=== PATIENT | male | born 1960 | race Two or more races ===

== ENCOUNTER 2018-05-10 09:28 | Inpatient (IN) | payer OTHER ==
[2018-05-10 09:36] VITALS: BMI 23.3
--- NOTE | 2018-05-10 10:52 | HP ---
COWS - Scale Resting Pulse: 1= [place] 81-100 Sweatin= No chills or Flushing Restless Observation: 1= Difficult to Sit Still Pupil Size: 1= Pupils >than Normal Bone or Joint Aches: 1= Mild Discomfort Runny Nose/ Eye Tearin= Runny Nose/Eyes GI Upset > 30mins: 1= Stomach Cramp Tremor Observation: 1= Tremor [place], Not Seen Yawning Observation: 2= >3x During Session Anxiety or Irritability: 2=Irritable/Anxious Goose Flesh Skin: 3=Piloerection COWS Score: 15 Admission ROS S - HPI Chief Complaint: opioid withdrawal symptoms Allergies/Adverse Reactions: Allergies Allergy/AdvReac Type Severity Reaction Status Date / Time prochlorperazine edisylate Allergy Severe Swelling Verified 05/10/18 09:40 [From Compazine] prochlorperazine maleate Allergy Severe Swelling Verified 05/10/18 09:40 [From Fyreballazine] History of Present Illness: 57 yo male with hx of heroin, cocaine, and marijuana dependence is here seeking detox. Last detox [facility] 2014. Longest period of sobriety one year. PMHX: Hep C, HIV+, asthma, anxiety and depression. Denies suicidal / homicidal ideaitn or suicide attempts. Denies hx of seixures, blackouts or overdose. Exam Limitations: No Limitations - Ebola screening Have you traveled outside of the country in the last 21 days: No Have you had contact with anyone from an Ebola affected area: No Have you been sick,other than usual withdrawal symptoms: No Do you have a fever: No - Review of Systems Constitutional: Chills, Loss of Appetite, Changes in sleep, Unintentional Wgt. Loss (20 lbs in the past year) EENT: reports: Blurred Vision (uses reading) Respiratory: reports: No Symptoms reported Cardiac: reports: Other (reports episodic periods of chest pain, denies chest pain at this time) GI: reports: Poor Appetite, Poor Fluid Intake, Abdominal cramping : reports: Frequency, Other Musculoskeletal: reports: Back Pain, Joint Pain Integumentary: reports: No Symptoms Reported Neuro: reports: Headache, Numbness (chronic numbness on rigth foot) Endocrine: reports: Increased Thirst Hematology: reports: See HPI Psychiatric: reports: Orientated x3, Depressed Other Systems: Reviewed and Negative Patient History - Patient Medical History Hx Anemia: Yes (NOT CURRENTLY ON SUPPLEMENTS) Hx Asthma: Yes (ON MDI) Hx Chronic Obstructive Pulmonary Disease (COPD): No Hx Cancer: No Hx Cardiac Disorders: No Hx Congestive Heart Failure: No Hx Hypertension: No Hx Hypercholesterolemia: No HX Cerebrovascular Accident: No Hx Seizures: No Hx Dementia: No Hx Diabetes: No Hx Gastrointestinal Disorders: Yes (NOT ON MED) Hx Liver Disease: Yes (HEP C) Hx Genitourinary Disorders: No (DENIES) Hx Sexually Transmitted Disorders: Yes (HIV) Hx Renal Disease (ESRD): No Hx Thyroid Disease: No Hx Human Immunodeficiency Virus (HIV): Yes (SINCE 1986;HX ORAL THRUSH; NO CURRENT ANTIRETROVIRAL MEDS.) Hx Hepatitis C: Yes (NO [place]) Hx Depression: Yes (NO CURRENT MEDS) Hx Suicide Attempt: No (DENIES) Hx Bipolar Disorder: No Hx Schizophrenia: No - Patient Surgical History Past Surgical History: Yes Hx Neurologic Surgery: No Hx Cataract Extraction: No Hx Cardiac Surgery: No Hx Lung Surgery: No Hx Breast Surgery: No Hx Breast Biopsy: No Hx Abdominal Surgery: No Hx Appendectomy: No Hx Cholecystectomy: Yes (in 2003) Hx Genitourinary Surgery: No Hx Section: No Hx Orthopedic Surgery: No Other Surgical History: Cyst removed from upper chest @ at 15 yrs old. Anesthesia Reaction: No - PPD History Previous Implant?: Yes Documented Results: Negative w/proof Implanted On Prior [facility] Admission?: Yes Date: 03/17/12 Results: NEGATIVE PPD to be Administered?: Yes - Smoking Cessation Smoking history: Former smoker Have you smoked in the past 12 months: No Aproximately how many cigarettes per day: 80 If you are a former smoker, when did you quit?: IN 1995 Hx Chewing Tobacco Use: No Initiated information on smoking cessation: No - Substance & Tx. History Hx Alcohol Use: No Hx Substance Use: Yes Substance Use Type: Heroin, Marijuana, Opiates Hx Substance Use Treatment: Yes ([facility] 2014) - Substances Abused Heroin Route: Inhalation Frequency: Daily Amount used: 14-16 BAGS DAILY Age of first use: 18 Date of Last Use: 05/10/18 Marijuana/Hashish Route: Smoking Frequency: 3-6 times per week Amount used: 1/2 JOINT Age of first use: 15 Date of Last Use: 05/10/18 Cocaine Route: Injection Frequency: Daily Amount used: 1 BAG WHEN USED Age of first use: 20 Date of Last Use: 05/08/18 Family Disease History - Family Disease History Family Disease History: Heart Disease: Mother, Other: Father (ADDICTION) Admission Physical Exam [facility] - Vital Signs Vital Signs: Vital Signs - 24 hr 05/10/18 09:30 Temperature 97.4 F L Pulse Rate 102 H Respiratory 18 Rate Blood Pressure 152/96 - Physical General Appearance: Yes: Appropriately Dressed, Thin, Sweating, Anxious HEENTM: Yes: EOMI, Hearing grossly Normal, Normal ENT Inspection, Normocephalic , Normal Voice, BARRY, Pharynx Normal, Tm's normal, Other (poor dentition) Respiratory: Yes: Chest Non-Tender, Lungs Clear, Normal Breath Sounds, No Respiratory Distress, No Accessory Muscle Use Neck: Yes: No masses,lesions,Nodules, Trachea in good position Breast: Yes: Breast Exam Deferred Cardiology: Yes: Regular Rhythm, Regular Rate Abdominal: Yes: Normal Bowel Sounds, Non Tender, Flat, Soft Genitourinary: Yes: Within Normal Limits Back: Yes: Normal Inspection Musculoskeletal: Yes: full range of Motion, Gait Steady, Pelvis Stable, Back pain Extremities: Yes: Normal Capillary Refill, Normal Inspection, Normal Range of Motion, Non-Tender Neurological: Yes: Within Normal Limits, policy change clerk II-XII NML intact, Fully Oriented, Alert, Depressed Affect Integumentary: Yes: Normal Color, Warm, Diaphoresis Lymphatic: Yes: Within Normal Limits - Diagnostic (1) Cocaine dependence Current Visit: Yes Status: Acute Qualifiers: Substance use status: uncomplicated Qualified Code(s): F14.20 - Cocaine dependence, uncomplicated (2) Marijuana dependence Current Visit: Yes Status: Acute (3) Opioid dependence with withdrawal Current Visit: Yes Status: Acute (4) Asthma Current Visit: Yes Status: Chronic Qualifiers: Asthma severity: mild Asthma persistence: intermittent Asthma complication type: unspecified Qualified Code(s): J45.20 - Mild intermittent asthma, uncomplicated (5) Depression Current Visit: Yes Status: Suspected Qualifiers: Depression Type: unspecified Qualified Code(s): F32.9 - Major depressive disorder, single episode, unspecified (6) HIV (human immunodeficiency virus infection) Current Visit: Yes Status: Chronic (7) Hepatitis C Current Visit: Yes Status: Chronic Qualifiers: Viral hepatitis chronicity: chronic Hepatic coma status: without hepatic coma Qualified Code(s): B18.2 - Chronic viral hepatitis C Cleared for Admission [facility] - Detox or Rehab [facility] Level of Care: Medically Managed Detox Regimen/Protocol: Methadone [facility] Breath Alcohol Content Breath Alcohol Content: 0 Urine Drug Screen - Results Drug Screen Negative: No Urine Drug Screen Results: THC-Marijuana, LAMONT-Cocaine, OPI-Opiates, MTD- Methadone, OXY-Oxycodone
[2018-05-10] MEDS ORDERED: ALBUTEROL SO4 8 GM HFA INHALER IH PRN (10:57)
[2018-05-10] MEDS ORDERED: HYDROCORTISONE 2.5% TOPICAL CREAM 30 GM TUBE TP PRN (10:57)
[2018-05-10] MEDS ORDERED: ACETAMINOPHEN 325 MG TABLET (FP) PO PRN (10:58)
[2018-05-10] MEDS ORDERED: LOPERAMIDE HCL 2 MG CAPSULE PO PRN (10:58)
[2018-05-10] MEDS ORDERED: P-EPHED 60MG/TRIPROLIDI 2.5MG TABLET PO PRN (10:58)
[2018-05-10] MEDS ORDERED: MAGNESIUM HYDROX 2400MG/30ML ORAL SUSPENSION 30 ML CUP PO PRN (10:58)
[2018-05-10] MEDS ORDERED: MENTHOL/PHENOL 1 EACH UD MM PRN (10:58)
[2018-05-10] MEDS ORDERED: guaiFENesin/D-METHORPHAN HB 10 ML UNIT-DOSE CUPS PO PRN (10:58)
[2018-05-10] MEDS ORDERED: IBUPROFEN 400 MG TABLET (FP) PO PRN (10:58)
[2018-05-10] MEDS ORDERED: MAG HYDROX/AL HYDROX/SIMETH 30 ML UNIT-DOSE CUP PO PRN (10:58)
[2018-05-10] MEDS ORDERED: MAGNESIUM CITRATE 300 ML BOTTLE PO PRN (10:58)
[2018-05-10] MEDS ORDERED: METHADONE HCL 10 MG TABLET (FOR DETOX USE ONLY) PO ONE ×2 (12:15→23:00)
[2018-05-10] MEDS: diazePAM 5 MG TABLET PO PRN ×2 (13:28→22:04)
[2018-05-10 17:18] LABS: URINE APPEARANCE TURBID; URINE BILIRUBIN NEGATIVE (<2.0 mg/dL); URINE COLOR AMBER; URINE GLUCOSE (UA) NEGATIVE (NEGATIVE); URINE KETONE NEGATIVE (NEGATIVE); URINE LEUK ESTERASE NEGATIVE (NEGATIVE); URINE NITRITE NEGATIVE (NEGATIVE); URINE PROTEIN NEGATIVE (NEGATIVE); URINE UROBILINOGEN NEGATIVE mg/dL (0.2-1.0)
[2018-05-10] MEDS ORDERED: DARUNAVIR 800 MG/COBICISTAT 150MG TABLET PO SCH (22:00)
[2018-05-10] MEDS: MELATONIN 5 MG TABLETS PO PRN (22:04)
[2018-05-10] MEDS: PATIENT'S OWN MEDICATION (NON-FORMULARY) (Dolutegravir Sodium [Tivicay] 50 MG) PO SCH (22:04)
[2018-05-10] MEDS: TENOFOVIR DISOPROXIL FUMARATE 300 MG TABLET PO SCH (22:04)
[2018-05-10] MEDS: THIAMINE HCL 100 MG TABLET (FP) PO SCH (22:04)
[2018-05-10] MEDS: DARUNAVIR 800 MG/COBICISTAT 150MG TABLET PO SCH (22:04)
[2018-05-11] MEDS: diazePAM 5 MG TABLET PO PRN ×3 (06:19→22:05)
[2018-05-11] MEDS ORDERED: DOLUTEGRAVIR SODIUM 50 MG TABLET PO SCH (10:00)
[2018-05-11] MEDS ORDERED: METHADONE HCL 10 MG TABLET (FOR DETOX USE ONLY) PO ONE (10:00)
[2018-05-11] MEDS ORDERED: DARUNAVIR 800 MG/COBICISTAT 150MG TABLET PO SCH (10:00)
[2018-05-11] MEDS ORDERED: TENOFOVIR DISOPROXIL FUMARATE 300 MG TABLET PO SCH (10:00)
[2018-05-11] MEDS: PRENATAL VITAMINS W/ FOLIC ACID TABLET (FP) PO SCH (10:12)
[2018-05-11 10:49] LABS: HEMATOCRIT 41.3 % (35.4-49); HEMOGLOBIN 13.6 GM/dL (11.7-16.9); MCH 27.7 pg (25.7-33.7); MEAN CELL VOLUME 84.1 fl (80-96); MEAN PLT VOLUME 12.2 fl (7.5-11.1); PLATELET COUNT 120 K/MM3 (134-434); RBC 4.91 M/mm3 (4.00-5.60); RDW 14.1 % (11.9-15.9); WHITE BLOOD COUNT 4.8 K/mm3 (4.0-10.0)
[2018-05-11 11:00] LABS: ALBUMIN 3.8 g/dl (3.4-5.0); ANION GAP 9 (8-16); BLOOD UREA NITROGEN 14 mg/dL (7-18); CHLORIDE 104 mmol/L (98-107); CO2 30 mmol/L (21-32); POTASSIUM 4.5 mmol/L (3.5-5.1); SODIUM 143 mmol/L (136-145)
[2018-05-11 11:03] LABS: ALK PHOS 129 U/L (45-117); BILIRUBIN,TOTAL 0.5 mg/dL (0.2-1.0); CALCIUM 9.7 mg/dL (8.5-10.1); GLUCOSE,RANDOM 98 mg/dL (74-106); SGOT/AST 365 U/L (15-37); SGPT/ALT 226 U/L (12-78); TOT PROT 9.6 g/dl (6.4-8.2)
--- NOTE | 2018-05-11 11:26 | PN ---
[facility] COWS - Scale Resting Pulse: 1= [place] 81-100 Sweatin= Chills/Flushing Restless Observation: 3= Extraneous Movement Pupil Size: 0= Normal to Room Light Bone or Joint Aches: 1= Mild Discomfort Runny Nose/ Eye Tearin= None GI Upset > 30mins: 0= None Tremor Observation of Outstretched Hands: 2= Slight Tremor Visible Yawning Observation: 1= 1-2x During Session Anxiety or Irritability: 2=Irritable/Anxious Goose Flesh Skin: 0=Smooth Skin COWS Score: 11 [facility] Progress Note (SOAP) Subjective: ANXIETY,FATIGUE, OTHERWISE REPORTS DETOX PROTOCOL PROCEEDING WELL. Objective: 05/11/18 11:23 Vital Signs 05/11/18 05/11/18 05/11/18 03:30 06:08 10:42 Temperature 98.1 F 97.5 F L Pulse Rate 70 85 Respiratory 18 18 18 Rate Blood Pressure 113/72 111/78 Laboratory Tests 05/10/18 05/11/18 05/11/18 16:30 06:00 06:00 WBC 4.8 RBC 4.91 Hgb 13.6 Hct 41.3 MCV 84.1 MCH 27.7 MCHC 33.0 RDW 14.1 Plt Count 120 L MPV 12.2 H Sodium 143 Potassium 4.5 Chloride 104 Carbon Dioxide 30 Anion Gap 9 BUN 14 Creatinine 1.0 Creat Clearance w eGFR > 60 Random Glucose 98 Calcium 9.7 Total Bilirubin 0.5 AST 365 H D ALT 226 H D Alkaline Phosphatase 129 H Total Protein 9.6 H Albumin 3.8 Urine Color Kerline Urine Appearance Turbid Urine pH 5.0 Ur Specific [place] 1.025 Urine Protein Negative Urine Glucose (UA) Negative Urine Ketones Negative Urine Blood Negative Urine Nitrite Negative Urine Bilirubin Negative Urine Urobilinogen Negative Ur Leukocyte Esterase Negative ELEVATED LIVER ENZYMES Assessment: 05/11/18 11:24 WITHDRAWAL SX Plan: CONTINUE DETOX INCREASE PO FLUIDS REPEAT LIVER ENZYMES; INR
--- NOTE | 2018-05-11 15:57 | PN ---
[facility] Progress Note Note: Spoke to patient re:elevated liver enzymes. In collaboration with the pharmacist Mr. Berg, Tivicay 50 mg, Prescobix 800-150 mg and Tenofovir 300 mg will be held tonight. Liver enzymes to be repeated in the morning. Plan:Re-evaluate pt after repeat labs. Pt will take copy of lab results to follow up with his primary care provider Dr. Linh young at the [place], [place] after detox for proper management. Pt verbalizes understanding of plan.
--- NOTE | 2018-05-11 17:06 | EKG ---
Test Reason : Blood Pressure : / mmHG Vent. Rate : 083 BPM Atrial Rate : 083 BPM P-R Int : 130 ms QRS Dur : 072 ms QT Int : 356 ms P-R-T Axes : 070 -03 035 degrees QTc Int : 418 ms NORMAL SINUS RHYTHM NORMAL ECG NO PREVIOUS ECGS AVAILABLE Confirmed by MD PALOMA, GIO ([id number]) on 05/11/2018 5:06:07 PM Referred By: Confirmed By:GIO DOW MD
--- NOTE | 2018-05-11 18:10 | CONSULT ---
[facility] Psychiatric Consult - Data Date of interview: 05/11/18 Admission source: [facility] Identifying data: Readmission to [facility] for this 57 y/o male seeking detox treatmenton [address] [place] [address] for heroin,cocaine and cannabis dependence.Patient is in a 16 year common-law relationship without dependents, domiciled,unemployed and supported on SSI/SSD benefits. Substance Abuse History: Discussed in this session.Substance abuse (cocaine, heroin,cannabis) confirmed by the patient.Smoking history: Former smoker. Have you smoked in the past 12 months: No. Aproximately how many cigarettes per day : 80. If you are a former smoker, when did you quit?: IN 1995. Hx Chewing Tobacco Use: No. Initiated information on smoking cessation: No. - Substance & Tx. History. Hx Alcohol Use: No. Hx Substance Use: Yes. Substance Use Type : Heroin, Marijuana, Opiates. Hx Substance Use Treatment: Yes ([facility] 2014). - Substances Abused. Heroin. Route: Inhalation. Frequency: Daily. Amount used: 14-16 BAGS DAILY. Age of first use: 18. Date of Last Use: 05/10/18. Marijuana/Hashish. Route: Smoking. Frequency: 3-6 times per week. Amount used : 1/2 JOINT. Age of first use: 15. Date of Last Use: 05/10/18. Cocaine. Route: Injection. Frequency: Daily. Amount used: 1 BAG WHEN USED. Age of first use: 20. Date of Last Use: 05/08/18 Medical History: Anemia,bronchial asthma,HIV infection since 1986 (on HAART medications),hepatitis C and a history of cholecystectomy (2003). Psychiatric History: Patient denies. Physical/Sexual Abuse/Trauma History: Distant history of a traumatic experience : witnessing the [place] two [place] in [facility].Now coping well with his memories. Additional Comment: Urine Drug Screen Results: THC-Marijuana, LAMONT-Cocaine, OPI- Opiates, MTD-Methadone, OXY-Oxycodone.Noted. Mental Status Exam - Mental Status Exam Alert and Oriented to: Time, Place, Person Cognitive Function: Good Patient Appearance: Well Groomed (neatly attired) Mood: Hopeful, Euthymic Affect: Appropriate, Normal Range Patient Behavior: Fatigued, Appropriate, Cooperative Speech Pattern: Clear (bilingual), Appropriate Voice Loudness: Normal Thought Process: Intact, Goal Oriented Thought Disorder: Not Present Hallucinations: Denies Suicidal Ideation: Denies Homicidal Ideation: Denies Insight/Judgement: Poor Sleep: Well Appetite: Good Muscle strength/Tone: Normal Gait/Station: Normal Psychiatric Findings - Problem List ([place] 1, 2,3) (1) Opioid dependence with withdrawal Current Visit: Yes Status: Acute (2) Cocaine dependence Current Visit: Yes Status: Acute Qualifiers: Substance use status: uncomplicated Qualified Code(s): F14.20 - Cocaine dependence, uncomplicated (3) Marijuana dependence Current Visit: Yes Status: Acute - Initial Treatment Plan Initial Treatment Plan: Psychoeducation.Sleep hygiene discussed.Detoxification in progress.Observation.
[2018-05-11] MEDS: THIAMINE HCL 100 MG TABLET (FP) PO SCH (22:04)
[2018-05-12] MEDS ORDERED: METHADONE HCL 5 MG TABLET (FOR DETOX USE ONLY) PO ONE (10:00)
[2018-05-12] MEDS: PRENATAL VITAMINS W/ FOLIC ACID TABLET (FP) PO SCH (10:03)
--- NOTE | 2018-05-12 14:06 | PN ---
[facility] COWS - Scale Resting Pulse: 0= [place] 80 or Below Sweatin= Chills/Flushing Restless Observation: 1= Difficult to Sit Still Pupil Size: 0= Normal to Room Light Bone or Joint Aches: 2= Severe Diffuse Aches Runny Nose/ Eye Tearin= Nasal Congestion GI Upset > 30mins: 0= None Tremor Observation of Outstretched Hands: 0= None Yawning Observation: 1= 1-2x During Session Anxiety or Irritability: 2=Irritable/Anxious Goose Flesh Skin: 3=Piloerection COWS Score: 11 [facility] Progress Note (SOAP) Subjective: H/A, Body Aches, Fatigue. Objective: PATIENT A & O X 2 (UNCERTAIN ABOUT CURRENT DAY / DATE). PATIENT OBSERVED AMBULATING ON UNIT. NO ACUTE DISTRESS. 05/12/18 14:03 Vital Signs Temperature 98.4 F 05/12/18 13:34 Pulse Rate 74 05/12/18 13:34 Respiratory Rate 20 05/12/18 13:34 Blood Pressure 113/78 05/12/18 13:34 O2 Sat by Pulse Oximetry (%) Laboratory Tests 05/10/18 05/11/18 05/11/18 16:30 06:00 06:00 WBC 4.8 RBC 4.91 Hgb 13.6 Hct 41.3 MCV 84.1 MCH 27.7 MCHC 33.0 RDW 14.1 Plt Count 120 L MPV 12.2 H Sodium 143 Potassium 4.5 Chloride 104 Carbon Dioxide 30 Anion Gap 9 BUN 14 Creatinine 1.0 Creat Clearance w eGFR > 60 Random Glucose 98 Calcium 9.7 Total Bilirubin 0.5 AST 365 H D ALT 226 H D Alkaline Phosphatase 129 H Total Protein 9.6 H Albumin 3.8 Urine Color Kerline Urine Appearance Turbid Urine pH 5.0 Ur Specific [place] 1.025 Urine Protein Negative Urine Glucose (UA) Negative Urine Ketones Negative Urine Blood Negative Urine Nitrite Negative Urine Bilirubin Negative Urine Urobilinogen Negative Ur Leukocyte Esterase Negative RPR Titer 05/11/18 06:00 WBC RBC Hgb Hct MCV MCH MCHC RDW Plt Count MPV Sodium Potassium Chloride Carbon Dioxide Anion Gap BUN Creatinine Creat Clearance w eGFR Random Glucose Calcium Total Bilirubin AST ALT Alkaline Phosphatase Total Protein Albumin Urine Color Urine Appearance Urine pH Ur Specific [place] Urine Protein Urine Glucose (UA) Urine Ketones Urine Blood Urine Nitrite Urine Bilirubin Urine Urobilinogen Ur Leukocyte Esterase RPR Titer Nonreactive LABS NOTED. Assessment: 05/12/18 14:04 WITHDRAWAL SYMPTOMS. Plan: CONTINUE DETOX. HEPATIC FUNCTION PANEL TOMORROW AM FOR ELEVATED ADMISSION HEPATIC LIVER ENZYME VALUES.
[2018-05-12] MEDS: diazePAM 5 MG TABLET PO PRN (22:08)
[2018-05-12] MEDS: THIAMINE HCL 100 MG TABLET (FP) PO SCH (22:08)
[2018-05-12] MEDS: PATIENT'S OWN MEDICATION (NON-FORMULARY) (Dolutegravir Sodium [Tivicay] 50 MG) PO SCH (22:10)
[2018-05-12] MEDS: DARUNAVIR 800 MG/COBICISTAT 150MG TABLET PO SCH (22:11)
[2018-05-12] MEDS: TENOFOVIR DISOPROXIL FUMARATE 300 MG TABLET PO SCH (22:11)
[2018-05-13] MEDS: diazePAM 5 MG TABLET PO PRN (09:33)
[2018-05-13 09:53] LABS: ALBUMIN 2.7 g/dl (3.4-5.0)
[2018-05-13 09:57] LABS: BILIRUBIN,TOTAL 0.5 mg/dL (0.2-1.0); TOT PROT 7.7 g/dl (6.4-8.2)
[2018-05-13] MEDS ORDERED: METHADONE HCL 5 MG TABLET (FOR DETOX USE ONLY) PO ONE (10:00)
[2018-05-13] MEDS: PRENATAL VITAMINS W/ FOLIC ACID TABLET (FP) PO SCH (10:04)
--- NOTE | 2018-05-13 12:19 | PN ---
[facility] Progress Note (SOAP) Subjective: Body Aches, Sweating, Fatigue, Diarrhea. Objective: PATIENT A & O X 2 (UNCERTAIN ABOUT CURRENT DAY / DATE). PATIENT OBSERVED AMBULATING ON UNIT. NO ACUTE DISTRESS. 05/13/18 12:16 Vital Signs Temperature 97.1 F L 05/13/18 09:36 Pulse Rate 85 05/13/18 09:36 Respiratory Rate 20 05/13/18 09:36 Blood Pressure 112/82 05/13/18 09:36 O2 Sat by Pulse Oximetry (%) Laboratory Tests 05/10/18 05/11/18 05/11/18 16:30 06:00 06:00 WBC 4.8 RBC 4.91 Hgb 13.6 Hct 41.3 MCV 84.1 MCH 27.7 MCHC 33.0 RDW 14.1 Plt Count 120 L MPV 12.2 H Sodium 143 Potassium 4.5 Chloride 104 Carbon Dioxide 30 Anion Gap 9 BUN 14 Creatinine 1.0 Creat Clearance w eGFR > 60 Random Glucose 98 Calcium 9.7 Total Bilirubin 0.5 AST 365 H D ALT 226 H D Alkaline Phosphatase 129 H Total Protein 9.6 H Albumin 3.8 Urine Color Kerline Urine Appearance Turbid Urine pH 5.0 Ur Specific [place] 1.025 Urine Protein Negative Urine Glucose (UA) Negative Urine Ketones Negative Urine Blood Negative Urine Nitrite Negative Urine Bilirubin Negative Urine Urobilinogen Negative Ur Leukocyte Esterase Negative RPR Titer 05/11/18 05/13/18 06:00 07:30 WBC RBC Hgb Hct MCV MCH MCHC RDW Plt Count MPV Sodium Potassium Chloride Carbon Dioxide Anion Gap BUN Creatinine Creat Clearance w eGFR Random Glucose Calcium Total Bilirubin 0.5 AST ALT 199 H Alkaline Phosphatase 118 H D Total Protein 7.7 Albumin 2.7 L Urine Color Urine Appearance Urine pH Ur Specific [place] Urine Protein Urine Glucose (UA) Urine Ketones Urine Blood Urine Nitrite Urine Bilirubin Urine Urobilinogen Ur Leukocyte Esterase RPR Titer Nonreactive LABS NOTED. Assessment: 05/13/18 12:17 WITHDRAWAL SYMPTOMS. Plan: CONTINUE DETOX. INCREASE DAILY PO FLUID INTAKE. PRN IMMODIUM FOR DIARRHEA.
[2018-05-13 15:22] LABS: BILIRUBIN,DIRECT 0.2 mg/dL (0.0-0.2)
--- NOTE | 2018-05-13 17:33 | PN ---
[facility] Progress Note Note: Patient on antivirals and has elevated liver enzymes. Alert. Disoriented to day/ month. Is aware of location and year. Tremors of hands upon extension. Abd soft , non-tender, BS(+). Lungs CTA. CMP Sodium 143 mmol/L (136-145) 05/11/18 06:00 Potassium 4.5 mmol/L (3.5-5.1) 05/11/18 06:00 Chloride 104 mmol/L (98-107) 05/11/18 06:00 Carbon Dioxide 30 mmol/L (21-32) 05/11/18 06:00 Anion Gap 9 (8-16) 05/11/18 06:00 BUN 14 mg/dL (7-18) 05/11/18 06:00 Creatinine 1.0 mg/dL (0.7-1.3) 05/11/18 06:00 Creat Clearance w eGFR > 60 (>60) 05/11/18 06:00 Random Glucose 98 mg/dL (74-106) 05/11/18 06:00 Calcium 9.7 mg/dL (8.5-10.1) 05/11/18 06:00 Total Bilirubin 0.5 mg/dL (0.2-1.0) 05/13/18 07:30 Direct Bilirubin 0.2 mg/dL (0.0-0.2) 05/13/18 07:30 AST 345 U/L (15-37) H 05/13/18 07:30 ALT 199 U/L (12-78) H 05/13/18 07:30 Alkaline Phosphatase 118 U/L (45-117) H D 05/13/18 07:30 Total Protein 7.7 g/dl (6.4-8.2) 05/13/18 07:30 Albumin 2.7 g/dl (3.4-5.0) L 05/13/18 07:30 Vital Signs Period Temp Pulse Resp BP Sys/[place] Pulse Ox Last 24 Hr 96.8 F-98.6 F 68-85 18-20 112-136/70-87 Will hold antivirals and discussed with patient the reasons for stopping medications. Patient verbalizes an understanding of the need to meet w/ PCP and discuss experience while at [facility] and need for medication evaluation. Will repeat liver enzymes and order serum ammonia levels for am.
[2018-05-13] MEDS: THIAMINE HCL 100 MG TABLET (FP) PO SCH (22:06)
[2018-05-13] MEDS: MELATONIN 5 MG TABLETS PO PRN (22:06)
[2018-05-14] MEDS ORDERED: METHADONE HCL 10 MG TABLET (FOR DETOX USE ONLY) PO ONE (10:00)
[2018-05-14] MEDS: PRENATAL VITAMINS W/ FOLIC ACID TABLET (FP) PO SCH (10:06)
[2018-05-14 10:46] LABS: ANION GAP 8 (8-16); BLOOD UREA NITROGEN 11 mg/dL (7-18); CALCIUM 8.9 mg/dL (8.5-10.1); CHLORIDE 109 mmol/L (98-107); CO2 25 mmol/L (21-32); CREATININE 0.8 mg/dL (0.7-1.3); GLUCOSE,RANDOM 102 mg/dL (74-106); POTASSIUM 4.1 mmol/L (3.5-5.1); SGPT/ALT 231 U/L (12-78); SODIUM 142 mmol/L (136-145)
[2018-05-14 10:47] LABS: SGOT/AST 408 U/L (15-37)
[2018-05-14 10:48] LABS: ALK PHOS 125 U/L (45-117); BILIRUBIN,TOTAL 0.5 mg/dL (0.2-1.0); TOT PROT 8.4 g/dl (6.4-8.2)
--- NOTE | 2018-05-14 12:11 | PN ---
S Progress Note (SOAP) Subjective: Patient reports mild chills and sweating. Patient denies any other withdrawal symptoms at this time. Objective: PATIENT A & O X 3, OBSERVED AMBULATING ON UNIT. NO ACUTE DISTRESS. 05/14/18 12:10 Vital Signs Temperature 97.7 F 05/14/18 09:45 Pulse Rate 72 05/14/18 09:45 Respiratory Rate 16 05/14/18 09:45 Blood Pressure 101/67 05/14/18 09:45 O2 Sat by Pulse Oximetry (%) Laboratory Tests 05/10/18 05/11/18 05/11/18 16:30 06:00 06:00 WBC 4.8 RBC 4.91 Hgb 13.6 Hct 41.3 MCV 84.1 MCH 27.7 MCHC 33.0 RDW 14.1 Plt Count 120 L MPV 12.2 H Sodium 143 Potassium 4.5 Chloride 104 Carbon Dioxide 30 Anion Gap 9 BUN 14 Creatinine 1.0 Creat Clearance w eGFR > 60 Random Glucose 98 Calcium 9.7 Total Bilirubin 0.5 Direct Bilirubin AST 365 H D ALT 226 H D Alkaline Phosphatase 129 H Ammonia Total Protein 9.6 H Albumin 3.8 Urine Color Kerline Urine Appearance Turbid Urine pH 5.0 Ur Specific [place] 1.025 Urine Protein Negative Urine Glucose (UA) Negative Urine Ketones Negative Urine Blood Negative Urine Nitrite Negative Urine Bilirubin Negative Urine Urobilinogen Negative Ur Leukocyte Esterase Negative RPR Titer 05/11/18 05/13/18 05/14/18 06:00 07:30 07:40 WBC RBC Hgb Hct MCV MCH MCHC RDW Plt Count MPV Sodium 142 Potassium 4.1 Chloride 109 H Carbon Dioxide 25 Anion Gap 8 BUN 11 Creatinine 0.8 Creat Clearance w eGFR > 60 Random Glucose 102 Calcium 8.9 Total Bilirubin 0.5 0.5 Direct Bilirubin 0.2 AST 345 H 408 H ALT 199 H 231 H Alkaline Phosphatase 118 H D 125 H Ammonia Total Protein 7.7 8.4 H Albumin 2.7 L 3.0 L Urine Color Urine Appearance Urine pH Ur Specific [place] Urine Protein Urine Glucose (UA) Urine Ketones Urine Blood Urine Nitrite Urine Bilirubin Urine Urobilinogen Ur Leukocyte Esterase RPR Titer Nonreactive 05/14/18 07:40 WBC RBC Hgb Hct MCV MCH MCHC RDW Plt Count MPV Sodium Potassium Chloride Carbon Dioxide Anion Gap BUN Creatinine Creat Clearance w eGFR Random Glucose Calcium Total Bilirubin Direct Bilirubin AST ALT Alkaline Phosphatase Ammonia 86.0 H Total Protein Albumin Urine Color Urine Appearance Urine pH Ur Specific [place] Urine Protein Urine Glucose (UA) Urine Ketones Urine Blood Urine Nitrite Urine Bilirubin Urine Urobilinogen Ur Leukocyte Esterase RPR Titer LABS NOTED. Assessment: 05/14/18 12:10 COMPLETION OF DETOX REGIMEN. Plan: PATIENT SCHEDULED FOR DISCHARGE FROM DETOX UNIT TODAY. PATIENT SCHEDULED TO GO [facility] ([facility] FOR AFTERCARE.
--- NOTE | 2018-05-14 12:14 | DS ---
[facility] Detox Discharge Summary Admission Date: 05/10/18 Discharge Date: 05/14/18 - History Present History: Cannabis Dependence, Cocaine Dependence, Opioid Dependence Additional Comments: PATIENT GOING TO [facility] ([place]DON[facility]O) FOR AFTERCARE. PATIENT WAS DISCHARGED FROM DETOX UNIT TO BE TAKEN TO REHAB UNIT IN STABLE MEDICAL CONDITION. Pertinent Past History: Asthma, Hep C, HIV, Depression, History of Anemia. - Physical Exam Results Vital Signs: Vital Signs Temperature 97.7 F 05/14/18 09:45 Pulse Rate 72 05/14/18 09:45 Respiratory Rate 16 05/14/18 09:45 Blood Pressure 101/67 05/14/18 09:45 O2 Sat by Pulse Oximetry (%) Pertinent Admission Physical Exam Findings: WITHDRAWAL SYMPTOMS. Laboratory Tests 05/10/18 05/11/18 05/11/18 16:30 06:00 06:00 WBC 4.8 RBC 4.91 Hgb 13.6 Hct 41.3 MCV 84.1 MCH 27.7 MCHC 33.0 RDW 14.1 Plt Count 120 L MPV 12.2 H Sodium 143 Potassium 4.5 Chloride 104 Carbon Dioxide 30 Anion Gap 9 BUN 14 Creatinine 1.0 Creat Clearance w eGFR > 60 Random Glucose 98 Calcium 9.7 Total Bilirubin 0.5 Direct Bilirubin AST 365 H D ALT 226 H D Alkaline Phosphatase 129 H Ammonia Total Protein 9.6 H Albumin 3.8 Urine Color Kerline Urine Appearance Turbid Urine pH 5.0 Ur Specific [place] 1.025 Urine Protein Negative Urine Glucose (UA) Negative Urine Ketones Negative Urine Blood Negative Urine Nitrite Negative Urine Bilirubin Negative Urine Urobilinogen Negative Ur Leukocyte Esterase Negative RPR Titer 05/11/18 05/13/18 05/14/18 06:00 07:30 07:40 WBC RBC Hgb Hct MCV MCH MCHC RDW Plt Count MPV Sodium 142 Potassium 4.1 Chloride 109 H Carbon Dioxide 25 Anion Gap 8 BUN 11 Creatinine 0.8 Creat Clearance w eGFR > 60 Random Glucose 102 Calcium 8.9 Total Bilirubin 0.5 0.5 Direct Bilirubin 0.2 AST 345 H 408 H ALT 199 H 231 H Alkaline Phosphatase 118 H D 125 H Ammonia Total Protein 7.7 8.4 H Albumin 2.7 L 3.0 L Urine Color Urine Appearance Urine pH Ur Specific [place] Urine Protein Urine Glucose (UA) Urine Ketones Urine Blood Urine Nitrite Urine Bilirubin Urine Urobilinogen Ur Leukocyte Esterase RPR Titer Nonreactive 05/14/18 07:40 WBC RBC Hgb Hct MCV MCH MCHC RDW Plt Count MPV Sodium Potassium Chloride Carbon Dioxide Anion Gap BUN Creatinine Creat Clearance w eGFR Random Glucose Calcium Total Bilirubin Direct Bilirubin AST ALT Alkaline Phosphatase Ammonia 86.0 H Total Protein Albumin Urine Color Urine Appearance Urine pH Ur Specific [place] Urine Protein Urine Glucose (UA) Urine Ketones Urine Blood Urine Nitrite Urine Bilirubin Urine Urobilinogen Ur Leukocyte Esterase RPR Titer LABS NOTED. - Treatment Hospital Course: Detox Protocol Followed, Detoxed Safely, Responded well, Discharged Condition Good, Rehab Referral Accepted Patient has Accepted a Rehab Referral to: [facility] ([place], [place] . - Medication Discharge Medications: Ambulatory Orders Albuterol Sulfate Inhaler - [Ventolin HFA Inhaler -] 2 inh IH Q4H PRN #1 canister 05/04/15 Darunavir/Cobicistat [Prezcobix 800 mg-150 mg Tablet] 1 each PO DAILY 05/10/18 Dolutegravir Sodium [Tivicay] 50 mg PO DAILY 05/10/18 Dolutegravir Sodium [Tivicay] 50 mg PO DAILY 05/10/18 Hydrocortisone 2.5% Topical Cr [Anusol-Hc -] 1 applic TP BID PRN 05/10/18 Tenofovir Disoproxil Fumarate 300 mg PO DAILY 05/10/18 - Diagnosis (1) Opioid dependence with withdrawal Current Visit: Yes Status: Acute (2) Cocaine dependence Current Visit: Yes Status: Acute Qualifiers: Substance use status: uncomplicated Qualified Code(s): F14.20 - Cocaine dependence, uncomplicated (3) Marijuana dependence Current Visit: Yes Status: Acute (4) Asthma Current Visit: Yes Status: Chronic Qualifiers: Asthma severity: mild Asthma persistence: unspecified Asthma complication type: uncomplicated Qualified Code(s): J45.909 - Unspecified asthma, uncomplicated (5) HIV (human immunodeficiency virus infection) Current Visit: Yes Status: Chronic (6) Depression Current Visit: Yes Status: Suspected Qualifiers: Depression Type: unspecified Qualified Code(s): F32.9 - Major depressive disorder, single episode, unspecified (7) Hepatitis C Current Visit: Yes Status: Chronic Qualifiers: Viral hepatitis chronicity: chronic Hepatic coma status: without hepatic coma Qualified Code(s): B18.2 - Chronic viral hepatitis C - AMA Did Patient Leave Against Medical Advice: No
--- NOTE | 2018-05-14 12:29 | HP ---
[facility] Rehab Assess/Revision - Admission History Admitted to Rehab from: [facility] Date of Admission to Rehab: 05/14/2018 - Vital signs Vital Signs: Vital Signs Period Temp Pulse Resp BP Sys/[place] Pulse Ox Last 24 Hr 97.2 F-98.6 F 67-75 16-20 101-136/67-86 - Findings Detox History & Physical reviewed: Yes Concur with findings: Yes Comments/Additional Findings: PATIENT'S MEDICAL / MEDICATION HISTORY REVIEWED PRIOR TO DISCHARGE FROM DETOX UNIT. DUE TO ELEVATED AMMONIA LEVEL NOTED EARLIER TODAY IN AM, LACTULOSE, 20 GM TID ORDERED X 3 DAYS WITH REPEAT AMMONIA LEVEL ORDERED FOR 05/18/2018. PATIENT WAS DISCHARGED FROM DETOX UNIT TO BE TAKEN TO REHAB UNIT IN STABLE MEDICAL CONDITION. Inpatient Rehab Admission - Initial Determination Are CD services needed?: Yes Free of communicable disease: Yes Not in need of hospitalization: Yes - Rehab Admission Criteria Previous failed treatment: Yes Comorbidities: Yes Patient is meeting Inpatient Rehab admission criteria:: Yes
[2018-05-14] MEDS: LACTULOSE 20 GM/30 ML UDC (FOR ORAL USE ONLY) PO SCH ×2 (14:00→21:52)
[2018-05-14] MEDS: THIAMINE HCL 100 MG TABLET (FP) PO SCH (21:52)
[2018-05-14] MEDS: MELATONIN 5 MG TABLETS PO PRN (21:53)
[2018-05-15] MEDS ORDERED: METHADONE HCL 5 MG TABLET (FOR DETOX USE ONLY) PO ONE (06:00)
[2018-05-15] MEDS: LACTULOSE 20 GM/30 ML UDC (FOR ORAL USE ONLY) PO SCH ×3 (06:39→22:17)
[2018-05-15] MEDS: PRENATAL VITAMINS W/ FOLIC ACID TABLET (FP) PO SCH (10:47)
[2018-05-15] MEDS: THIAMINE HCL 100 MG TABLET (FP) PO SCH (22:17)
[2018-05-16] MEDS: LACTULOSE 20 GM/30 ML UDC (FOR ORAL USE ONLY) PO SCH ×3 (06:24→22:02)
[2018-05-16] MEDS: PRENATAL VITAMINS W/ FOLIC ACID TABLET (FP) PO SCH (13:04)
[2018-05-16] MEDS: THIAMINE HCL 100 MG TABLET (FP) PO SCH (22:02)
[2018-05-17] MEDS: MELATONIN 5 MG TABLETS PO PRN (01:27)
[2018-05-17 07:32] VITALS: BP 123/83; PULSE 97; TEMP 97.5
[2018-05-17] MEDS: LACTULOSE 20 GM/30 ML UDC (FOR ORAL USE ONLY) PO SCH (07:36)
--- NOTE | 2018-05-17 08:40 | PN ---
S Progress Note Note: patient decided to sign out today due to family situation.See staff notes for details.
== END 2018-05-17 10:00 | disposition left against medical advice (07) | DRG 894 ==
LOC: YASAS 09:28 → Y3N 11:59 → Y5N 05-14 12:46
PROVIDERS: ADMIT Surgery; ATTEND Psychiatry & Neurology Psychiatry
PROC: HZ2ZZZZ Detoxification Services for Substance Abuse Treatment (ICD-10-PCS; principal; 2018-05-10)
PROC: HZ42ZZZ Group Counseling for Substance Abuse Treatment, Cognitive-Behavioral (ICD-10-PCS; 2018-05-14)
DX: F11.23 Opioid dependence with withdrawal (principal); F14.20 Cocaine dependence, uncomplicated; E72.20 Disorder of urea cycle metabolism, unspecified; F12.20 Cannabis dependence, uncomplicated; F32.9 Major depressive disorder, single episode, unspecified; Z21 Asymptomatic human immunodeficiency virus [HIV] infection status; J45.909 Unspecified asthma, uncomplicated; B18.2 Chronic viral hepatitis C; R94.5 Abnormal results of liver function studies; Z88.8 Allergy status to other drugs, medicaments and biological substances; Z87.891 Personal history of nicotine dependence
CPT/HCPCS: 36415; 80053; 80076; 81003; 82140; 85027; 86593; 93005; 93010

== ENCOUNTER 2018-06-25 09:52 | Inpatient (IN) | payer OTHER ==
[2018-06-25 12:03] VITALS: BMI 21.7
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
[2018-06-25] MEDS ORDERED: P-EPHED 60MG/TRIPROLIDI 2.5MG TABLET PO PRN (13:46)
[2018-06-25] MEDS ORDERED: MAGNESIUM CITRATE 300 ML BOTTLE PO PRN (13:46)
[2018-06-25] MEDS ORDERED: MAGNESIUM HYDROX 2400MG/30ML ORAL SUSPENSION 30 ML CUP PO PRN (13:46)
[2018-06-25] MEDS ORDERED: guaiFENesin/D-METHORPHAN HB 10 ML UNIT-DOSE CUPS PO PRN (13:46)
[2018-06-25] MEDS ORDERED: LOPERAMIDE HCL 2 MG CAPSULE PO PRN (13:46)
[2018-06-25] MEDS ORDERED: MENTHOL/PHENOL 1 EACH UD MM PRN (13:46)
[2018-06-25] MEDS ORDERED: METHADONE HCL 10 MG TABLET (FOR DETOX USE ONLY) PO ONE ×2 (15:00→23:00)
[2018-06-25] MEDS: diazePAM 5 MG TABLET PO PRN ×2 (15:31→22:08)
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
[2018-06-25] MEDS ORDERED: MELATONIN 5 MG TABLETS PO PRN (22:00)
[2018-06-25] MEDS: THIAMINE HCL 100 MG TABLET (FP) PO SCH (22:08)
[2018-06-26] MEDS ORDERED: METHADONE HCL 10 MG TABLET (FOR DETOX USE ONLY) PO ONE (10:00)
[2018-06-26] MEDS: DARUNAVIR 800 MG/COBICISTAT 150MG TABLET PO SCH (10:37)
[2018-06-26] MEDS: DOLUTEGRAVIR SODIUM 50 MG TABLET PO SCH (10:37)
[2018-06-26] MEDS: diazePAM 5 MG TABLET PO PRN ×2 (10:37→22:24)
[2018-06-26] MEDS: TENOFOVIR DISOPROXIL FUMARATE 300 MG TABLET PO SCH (10:38)
[2018-06-26] MEDS: PRENATAL VITAMINS W/ FOLIC ACID TABLET (FP) PO SCH (10:40)
[2018-06-26 11:21] LABS: ALBUMIN 3.3 g/dl (3.4-5.0); ANION GAP 16 MMOL/L (8-16); BLOOD UREA NITROGEN 13 mg/dL (7-18); CALCIUM 8.6 mg/dL (8.5-10.1); CHLORIDE 97 mmol/L (98-107); CO2 23 mmol/L (21-32); GLUCOSE,RANDOM 89 mg/dL (74-106); SODIUM 136 mmol/L (136-145)
[2018-06-26 11:22] LABS: HEMATOCRIT 37.5 % (35.4-49); HEMOGLOBIN 12.3 GM/dL (11.7-16.9); MCH 27.5 pg (25.7-33.7); MCHC 32.9 g/dl (32.0-35.9); MEAN CELL VOLUME 83.6 fl (80-96); PLATELET COUNT 103 K/MM3 (134-434); RBC 4.49 M/mm3 (4.00-5.60); RDW 13.5 % (11.9-15.9)
[2018-06-26 11:23] LABS: URINE APPEARANCE CLEAR; URINE BILIRUBIN NEGATIVE (<2.0 mg/dL); URINE COLOR YELLOW; URINE GLUCOSE (UA) NEGATIVE (NEGATIVE); URINE KETONE NEGATIVE (NEGATIVE); URINE LEUK ESTERASE NEGATIVE (NEGATIVE); URINE NITRITE NEGATIVE (NEGATIVE); URINE PROTEIN NEGATIVE (NEGATIVE); URINE UROBILINOGEN NEGATIVE mg/dL (0.2-1.0)
[2018-06-26 11:25] LABS: ALK PHOS 99 U/L (45-117); BILIRUBIN,TOTAL 0.7 mg/dL (0.2-1.0); CREATININE 0.9 mg/dL (0.55-1.3); SGOT/AST 296 U/L (15-37); SGPT/ALT 161 U/L (13-61)
[2018-06-26 11:26] LABS: EPI CELLS RARE /HPF (FEW)
[2018-06-26] MEDS: THIAMINE HCL 100 MG TABLET (FP) PO SCH (22:24)
[2018-06-27] MEDS ORDERED: METHADONE HCL 5 MG TABLET (FOR DETOX USE ONLY) PO ONE (10:00)
[2018-06-27] MEDS: DARUNAVIR 800 MG/COBICISTAT 150MG TABLET PO SCH (10:30)
[2018-06-27] MEDS: DOLUTEGRAVIR SODIUM 50 MG TABLET PO SCH (10:30)
[2018-06-27] MEDS: PRENATAL VITAMINS W/ FOLIC ACID TABLET (FP) PO SCH (10:30)
[2018-06-27] MEDS: TENOFOVIR DISOPROXIL FUMARATE 300 MG TABLET PO SCH (10:30)
[2018-06-27] MEDS: diazePAM 5 MG TABLET PO PRN ×2 (10:30→22:31)
[2018-06-27] MEDS: ACETAMINOPHEN 325 MG TABLET (FP) PO PRN (10:31)
--- NOTE | 2018-06-27 17:05 | PN ---
[facility] COWS - Scale Resting Pulse: 0= [place] 80 or Below Sweatin= Chills/Flushing Restless Observation: 3= Extraneous Movement Pupil Size: 1= Pupils >than Normal Bone or Joint Aches: 2= Severe Diffuse Aches Runny Nose/ Eye Tearin= Runny Nose/Eyes GI Upset > 30mins: 2= Nausea/Diarrhea Tremor Observation of Outstretched Hands: 2= Slight Tremor Visible Yawning Observation: 1= 1-2x During Session Anxiety or Irritability: 2=Irritable/Anxious Goose Flesh Skin: 0=Smooth Skin COWS Score: 16 S Progress Note (SOAP) Subjective: Chills, runny nose, bone pain, diarrhea since Thursday (patient instructed to notify nurse whenever he has diarrhea) Objective: 06/27/18 17:03 Last Vital Signs Temp Pulse Resp BP Pulse Ox 97.2 F L 67 18 122/84 06/27/18 14:18 06/27/18 14:18 06/27/18 14:18 06/27/18 14:18 Laboratory Tests 06/26/18 06/26/18 06/26/18 05:40 05:40 05:40 WBC 7.0 RBC 4.49 Hgb 12.3 Hct 37.5 MCV 83.6 MCH 27.5 MCHC 32.9 RDW 13.5 Plt Count 103 L MPV 12.0 H Sodium 136 Potassium 3.0 L Chloride 97 L Carbon Dioxide 23 Anion Gap 16 BUN 13 Creatinine 0.9 Creat Clearance w eGFR > 60 Random Glucose 89 Calcium 8.6 Total Bilirubin 0.7 AST 296 H ALT 161 H Alkaline Phosphatase 99 Total Protein 9.0 H Albumin 3.3 L Urine Color Urine Appearance Urine pH Ur Specific [place] Urine Protein Urine Glucose (UA) Urine Ketones Urine Blood Urine Nitrite Urine Bilirubin Urine Urobilinogen Ur Leukocyte Esterase Urine WBC (Auto) Urine RBC (Auto) Ur Epithelial Cells RPR Titer Nonreactive 06/26/18 09:00 WBC RBC Hgb Hct MCV MCH MCHC RDW Plt Count MPV Sodium Potassium Chloride Carbon Dioxide Anion Gap BUN Creatinine Creat Clearance w eGFR Random Glucose Calcium Total Bilirubin AST ALT Alkaline Phosphatase Total Protein Albumin Urine Color Yellow Urine Appearance Clear Urine pH 6.0 Ur Specific [place] 1.010 Urine Protein Negative Urine Glucose (UA) Negative Urine Ketones Negative Urine Blood 1+ H Urine Nitrite Negative Urine Bilirubin Negative Urine Urobilinogen Negative Ur Leukocyte Esterase Negative Urine WBC (Auto) 1 Urine RBC (Auto) 2 Ur Epithelial Cells Rare RPR Titer Labs reviewed: K 3.0, UA 1+ blood Assessment: 06/27/18 17:06 Withdrawal symptoms Noted with hyperkalemia, elevated LFTs and microscopic hematuria Plan: Continue detox Hyperkalemia: start K Dur 40meq PO x 1 dose, BMP in AM Elevated LFTs: repeat LFTs Microscopic hematuria: encouraged PO water intake, repeat UA
[2018-06-27] MEDS ORDERED: POTASSIUM CHLORIDE ORAL LIQUID 20 MEQ/15 ML PO ONE (17:30)
[2018-06-27] MEDS: THIAMINE HCL 100 MG TABLET (FP) PO SCH (22:30)
[2018-06-27] MEDS: hydrOXYzine PAMOATE 50 MG CAPSULE (FP) PO PRN (22:31)
--- NOTE | 2018-06-27 22:37 | EKG ---
Test Reason : Blood Pressure : / mmHG Vent. Rate : 076 BPM Atrial Rate : 076 BPM P-R Int : 138 ms QRS Dur : 080 ms QT Int : 396 ms P-R-T Axes : 070 -03 034 degrees QTc Int : 445 ms NORMAL SINUS RHYTHM NORMAL ECG WHEN COMPARED WITH ECG OF 10-MAY-2018 12:39, NO SIGNIFICANT CHANGE WAS FOUND Confirmed by SHELTON ALARCON MD ([id number]) on 06/27/2018 10:37:11 PM Referred By: Confirmed By:SHELTON ALARCON MD
[2018-06-28] MEDS ORDERED: METHADONE HCL 5 MG TABLET (FOR DETOX USE ONLY) PO ONE (10:00)
[2018-06-28] MEDS: PRENATAL VITAMINS W/ FOLIC ACID TABLET (FP) PO SCH (10:29)
[2018-06-28] MEDS: diazePAM 5 MG TABLET PO PRN (10:29)
[2018-06-28] MEDS: DOLUTEGRAVIR SODIUM 50 MG TABLET PO SCH (10:30)
[2018-06-28] MEDS: DARUNAVIR 800 MG/COBICISTAT 150MG TABLET PO SCH (10:30)
[2018-06-28] MEDS: TENOFOVIR DISOPROXIL FUMARATE 300 MG TABLET PO SCH (10:31)
[2018-06-28] MEDS: IBUPROFEN 400 MG TABLET (FP) PO PRN (10:31)
[2018-06-28 10:35] LABS: URINE APPEARANCE CLEAR; URINE BILIRUBIN NEGATIVE (<2.0 mg/dL); URINE COLOR YELLOW; URINE GLUCOSE (UA) NEGATIVE (NEGATIVE); URINE KETONE NEGATIVE (NEGATIVE); URINE LEUK ESTERASE NEGATIVE (NEGATIVE); URINE NITRITE NEGATIVE (NEGATIVE); URINE PROTEIN NEGATIVE (NEGATIVE); URINE UROBILINOGEN NEGATIVE mg/dL (0.2-1.0)
[2018-06-28 11:11] LABS: CHLORIDE 108 mmol/L (98-107); POTASSIUM 3.8 mmol/L (3.5-5.1); SODIUM 145 mmol/L (136-145)
[2018-06-28 11:55] LABS: ALBUMIN 2.5 g/dl (3.4-5.0); ALK PHOS 114 U/L (45-117); ANION GAP 10 MMOL/L (8-16); BILIRUBIN,TOTAL 0.3 mg/dL (0.2-1.0); BLOOD UREA NITROGEN 14 mg/dL (7-18); CALCIUM 8.5 mg/dL (8.5-10.1); CO2 27 mmol/L (21-32); CREATININE 0.8 mg/dL (0.55-1.3); GLUCOSE,RANDOM 96 mg/dL (74-106); SGOT/AST 231 U/L (15-37); SGPT/ALT 142 U/L (13-61); TOT PROT 7.6 g/dl (6.4-8.2)
--- NOTE | 2018-06-28 12:17 | PN ---
[facility] Progress Note Note: Psychiatry Attending's note : Approached by patient. Complaint : insomnia. Mr Felix is requesting zolpidem. History of good response to the drug. Intervention : Sleep hygiene discussed with the patient. Ambien 10 mg po hs prn.Ordered. Patient made aware of risk of parasomnias. Agrees to careplan.
--- NOTE | 2018-06-28 19:00 | PN ---
[facility] COWS - Scale Resting Pulse: 0= [place] 80 or Below Sweatin=Flushed/Facial Moisture Restless Observation: 1= Difficult to Sit Still Pupil Size: 0= Normal to Room Light Bone or Joint Aches: 1= Mild Discomfort Runny Nose/ Eye Tearin= None GI Upset > 30mins: 2= Nausea/Diarrhea Tremor Observation of Outstretched Hands: 2= Slight Tremor Visible Yawning Observation: 0= None Anxiety or Irritability: 2=Irritable/Anxious Goose Flesh Skin: 0=Smooth Skin COWS Score: 10 BHS Progress Note (SOAP) Subjective: back pain cold sweats diarrhea Objective: 06/28/18 18:59 A & O x 3 slighly uncomfortable Vital Signs Temperature 97.3 F L 06/28/18 18:01 Pulse Rate 79 06/28/18 18:01 Respiratory Rate 16 06/28/18 18:01 Blood Pressure 92/62 06/28/18 18:01 O2 Sat by Pulse Oximetry (%) Assessment: 06/28/18 18:59 withdrawal sx Plan: continue detox
[2018-06-28] MEDS: ZOLPIDEM TARTRATE 10 MG TABLET (PARK CARE ONLY) PO PRN (22:06)
[2018-06-28] MEDS: THIAMINE HCL 100 MG TABLET (FP) PO SCH (22:06)
[2018-06-28] MEDS: hydrOXYzine PAMOATE 50 MG CAPSULE (FP) PO PRN (22:09)
[2018-06-29] MEDS ORDERED: METHADONE HCL 10 MG TABLET (FOR DETOX USE ONLY) PO ONE (10:00)
[2018-06-29] MEDS: PRENATAL VITAMINS W/ FOLIC ACID TABLET (FP) PO SCH (10:21)
[2018-06-29] MEDS: DARUNAVIR 800 MG/COBICISTAT 150MG TABLET PO SCH (10:21)
[2018-06-29] MEDS: TENOFOVIR DISOPROXIL FUMARATE 300 MG TABLET PO SCH (10:21)
[2018-06-29] MEDS: DOLUTEGRAVIR SODIUM 50 MG TABLET PO SCH (10:21)
[2018-06-29] MEDS: hydrOXYzine PAMOATE 50 MG CAPSULE (FP) PO PRN (10:24)
--- NOTE | 2018-06-29 16:44 | PN ---
S Progress Note (SOAP) Subjective: C/o chills, sweats, and back pain. Denies nausea or vomiting. Objective: A&O x3. Mild tremors of hands. Face w/ perspiration. Ambulating w/ a steady gait. Vital Signs 06/29/18 06/29/18 09:20 13:52 Temperature 97.5 F L 97.8 F Pulse Rate 72 76 Respiratory 16 16 Rate Blood Pressure 99/64 100/64 Lab Results WBC 7.0 K/mm3 (4.0-10.0) 06/26/18 05:40 RBC 4.49 M/mm3 (4.00-5.60) 06/26/18 05:40 Hgb 12.3 GM/dL (11.7-16.9) 06/26/18 05:40 Hct 37.5 % (35.4-49) 06/26/18 05:40 MCV 83.6 fl (80-96) 06/26/18 05:40 MCHC 32.9 g/dl (32.0-35.9) 06/26/18 05:40 RDW 13.5 % (11.9-15.9) 06/26/18 05:40 Plt Count 103 K/MM3 (134-434) L 06/26/18 05:40 Sodium 145 mmol/L (136-145) 06/28/18 08:00 Potassium 3.8 mmol/L (3.5-5.1) 06/28/18 08:00 Chloride 108 mmol/L (98-107) H 06/28/18 08:00 Carbon Dioxide 27 mmol/L (21-32) 06/28/18 08:00 Anion Gap 10 MMOL/L (8-16) 06/28/18 08:00 BUN 14 mg/dL (7-18) 06/28/18 08:00 Creatinine 0.8 mg/dL (0.55-1.3) 06/28/18 08:00 Random Glucose 96 mg/dL (74-106) 06/28/18 08:00 Calcium 8.5 mg/dL (8.5-10.1) 06/28/18 08:00 Labs reviewed. 06/29/18 16:43 Assessment: Withdrawal symptoms. Back pain. Decreased weight. Plan: Continue detox. Ibuprofen prn for pain. Increase ensure to TID.
[2018-06-29] MEDS: THIAMINE HCL 100 MG TABLET (FP) PO SCH (22:16)
[2018-06-29] MEDS: ZOLPIDEM TARTRATE 10 MG TABLET (PARK CARE ONLY) PO PRN (22:16)
[2018-06-29] MEDS: IBUPROFEN 400 MG TABLET (FP) PO PRN (22:16)
[2018-06-30] MEDS ORDERED: METHADONE HCL 5 MG TABLET (FOR DETOX USE ONLY) PO ONE (06:00)
[2018-06-30] MEDS: PRENATAL VITAMINS W/ FOLIC ACID TABLET (FP) PO SCH (10:33)
[2018-06-30] MEDS: TENOFOVIR DISOPROXIL FUMARATE 300 MG TABLET PO SCH (10:33)
[2018-06-30] MEDS: DARUNAVIR 800 MG/COBICISTAT 150MG TABLET PO SCH (10:33)
[2018-06-30] MEDS: DOLUTEGRAVIR SODIUM 50 MG TABLET PO SCH (10:33)
--- NOTE | 2018-06-30 11:03 | DS ---
[facility] Detox Discharge Summary Admission Date: 06/25/18 Discharge Date: 07/01/18 - History Present History: Alcohol Dependence Additional Comments: DETOX COMPLETED. Pertinent Past History: PLEASE SEE DX BELOW - Physical Exam Results Vital Signs: Vital Signs Temperature 96.4 F L 06/30/18 09:23 Pulse Rate 84 06/30/18 09:23 Respiratory Rate 18 06/30/18 09:23 Blood Pressure 122/68 06/30/18 09:23 O2 Sat by Pulse Oximetry (%) Pertinent Admission Physical Exam Findings: WITHDRAWAL SX Laboratory Tests 06/26/18 06/26/18 06/26/18 05:40 05:40 05:40 WBC 7.0 RBC 4.49 Hgb 12.3 Hct 37.5 MCV 83.6 MCH 27.5 MCHC 32.9 RDW 13.5 Plt Count 103 L MPV 12.0 H Sodium 136 Potassium 3.0 L Chloride 97 L Carbon Dioxide 23 Anion Gap 16 BUN 13 Creatinine 0.9 Creat Clearance w eGFR > 60 Random Glucose 89 Calcium 8.6 Total Bilirubin 0.7 AST 296 H ALT 161 H Alkaline Phosphatase 99 Total Protein 9.0 H Albumin 3.3 L Urine Color Urine Appearance Urine pH Ur Specific [place] Urine Protein Urine Glucose (UA) Urine Ketones Urine Blood Urine Nitrite Urine Bilirubin Urine Urobilinogen Ur Leukocyte Esterase Urine WBC (Auto) Urine RBC (Auto) Ur Epithelial Cells RPR Titer Nonreactive 06/26/18 06/28/18 06/28/18 09:00 08:00 08:00 WBC RBC Hgb Hct MCV MCH MCHC RDW Plt Count MPV Sodium 145 Potassium 3.8 Chloride 108 H Carbon Dioxide 27 Anion Gap 10 BUN 14 Creatinine 0.8 Creat Clearance w eGFR > 60 Random Glucose 96 Calcium 8.5 Total Bilirubin 0.3 AST 231 H ALT 142 H Alkaline Phosphatase 114 Total Protein 7.6 Albumin 2.5 L Urine Color Yellow Yellow Urine Appearance Clear Clear Urine pH 6.0 7.0 Ur Specific [place] 1.010 1.014 Urine Protein Negative Negative Urine Glucose (UA) Negative Negative Urine Ketones Negative Negative Urine Blood 1+ H Negative Urine Nitrite Negative Negative Urine Bilirubin Negative Negative Urine Urobilinogen Negative Negative Ur Leukocyte Esterase Negative Negative Urine WBC (Auto) 1 Urine RBC (Auto) 2 Ur Epithelial Cells Rare RPR Titer - Treatment Hospital Course: Detox Protocol Followed, Detoxed Safely, Responded well, Discharged Condition Good, Rehab Referral Accepted Patient has Accepted a Rehab Referral to: [facility] [address] [place] [address] - Medication Discharge Medications: Ambulatory Orders Albuterol Sulfate Inhaler - [Ventolin HFA Inhaler -] 2 inh IH Q4H PRN #1 canister 05/04/15 Darunavir/Cobicistat [Prezcobix 800 mg-150 mg Tablet] 1 each PO DAILY 05/10/18 Dolutegravir Sodium [Tivicay] 50 mg PO DAILY 05/10/18 Tenofovir Disoproxil Fumarate 300 mg PO DAILY 05/10/18 - Diagnosis (1) Hypokalemia Current Visit: Yes Status: Acute (2) Opioid dependence with withdrawal Current Visit: Yes Status: Acute (3) AIDS Current Visit: Yes Status: Chronic (4) Asthma Current Visit: Yes Status: Chronic Qualifiers: Asthma severity: unspecified severity Asthma persistence: unspecified Asthma complication type: uncomplicated Qualified Code(s): J45.909 - Unspecified asthma, uncomplicated (5) Hepatitis C Current Visit: Yes Status: Chronic Qualifiers: Viral hepatitis chronicity: chronic (6) History of anemia Current Visit: Yes Status: Suspected - AMA Did Patient Leave Against Medical Advice: No
--- NOTE | 2018-06-30 11:03 | PN ---
S Progress Note (SOAP) Subjective: DETOX COMPLETED SPOKE TO KAYLA Moreno,COUNSELOR THALIA LOZA AND WANG CARL ABOUT THIS PT WHO WILL BE DISCHARGED TO REHAB IN A.M PENDING BED AVAILABILITY TOMORROW. Objective: 06/30/18 11:02 Vital Signs - 8 hr 06/30/18 06/30/18 06/30/18 03:30 06:59 09:23 Temperature 97.8 F 96.4 F L Pulse Rate 65 84 Respiratory 18 18 18 Rate Blood Pressure 102/64 122/68 Laboratory Tests 06/26/18 06/26/18 06/26/18 05:40 05:40 05:40 WBC 7.0 RBC 4.49 Hgb 12.3 Hct 37.5 MCV 83.6 MCH 27.5 MCHC 32.9 RDW 13.5 Plt Count 103 L MPV 12.0 H Sodium 136 Potassium 3.0 L Chloride 97 L Carbon Dioxide 23 Anion Gap 16 BUN 13 Creatinine 0.9 Creat Clearance w eGFR > 60 Random Glucose 89 Calcium 8.6 Total Bilirubin 0.7 AST 296 H ALT 161 H Alkaline Phosphatase 99 Total Protein 9.0 H Albumin 3.3 L Urine Color Urine Appearance Urine pH Ur Specific [place] Urine Protein Urine Glucose (UA) Urine Ketones Urine Blood Urine Nitrite Urine Bilirubin Urine Urobilinogen Ur Leukocyte Esterase Urine WBC (Auto) Urine RBC (Auto) Ur Epithelial Cells RPR Titer Nonreactive 06/26/18 06/28/18 06/28/18 09:00 08:00 08:00 WBC RBC Hgb Hct MCV MCH MCHC RDW Plt Count MPV Sodium 145 Potassium 3.8 Chloride 108 H Carbon Dioxide 27 Anion Gap 10 BUN 14 Creatinine 0.8 Creat Clearance w eGFR > 60 Random Glucose 96 Calcium 8.5 Total Bilirubin 0.3 AST 231 H ALT 142 H Alkaline Phosphatase 114 Total Protein 7.6 Albumin 2.5 L Urine Color Yellow Yellow Urine Appearance Clear Clear Urine pH 6.0 7.0 Ur Specific [place] 1.010 1.014 Urine Protein Negative Negative Urine Glucose (UA) Negative Negative Urine Ketones Negative Negative Urine Blood 1+ H Negative Urine Nitrite Negative Negative Urine Bilirubin Negative Negative Urine Urobilinogen Negative Negative Ur Leukocyte Esterase Negative Negative Urine WBC (Auto) 1 Urine RBC (Auto) 2 Ur Epithelial Cells Rare RPR Titer Assessment: 06/30/18 11:02 MEDICALLY STABLE Plan: PT WILL BE HELD TILL TOMORROW FOR SAFE DISCHARGE PLAN TO REHAB.
[2018-06-30] MEDS: ZOLPIDEM TARTRATE 10 MG TABLET (PARK CARE ONLY) PO PRN (22:29)
[2018-06-30] MEDS: THIAMINE HCL 100 MG TABLET (FP) PO SCH (22:30)
[2018-06-30] MEDS: IBUPROFEN 400 MG TABLET (FP) PO PRN (22:30)
[2018-07-01] MEDS: PRENATAL VITAMINS W/ FOLIC ACID TABLET (FP) PO SCH (10:19)
[2018-07-01] MEDS: TENOFOVIR DISOPROXIL FUMARATE 300 MG TABLET PO SCH (10:19)
[2018-07-01] MEDS: DARUNAVIR 800 MG/COBICISTAT 150MG TABLET PO SCH (10:20)
[2018-07-01] MEDS: DOLUTEGRAVIR SODIUM 50 MG TABLET PO SCH (10:20)
--- NOTE | 2018-07-01 11:18 | PN ---
S Progress Note Note: PT TRANSFERED TO REHAB TODAY. ALERT O X 3. NAD.
[2018-07-01] MEDS: MAG HYDROX/AL HYDROX/SIMETH 30 ML UNIT-DOSE CUP PO PRN (18:58)
--- NOTE | 2018-07-01 21:00 | PN ---
[facility] Progress Note Note: Psychiatric nurse practitioner application packaging specialist note: Patient admitted to 5N from 3N detox. Ambien 10mg discontinued. Will order Melatonin 5mg.
[2018-07-01] MEDS: hydrOXYzine PAMOATE 50 MG CAPSULE (FP) PO PRN (21:18)
[2018-07-01] MEDS: THIAMINE HCL 100 MG TABLET (FP) PO SCH (21:18)
[2018-07-01] MEDS: MELATONIN 5 MG TABLETS PO PRN (21:18)
[2018-07-02] MEDS: MAG HYDROX/AL HYDROX/SIMETH 30 ML UNIT-DOSE CUP PO PRN (06:19)
[2018-07-02] MEDS: DARUNAVIR 800 MG/COBICISTAT 150MG TABLET PO SCH (10:38)
[2018-07-02] MEDS: PRENATAL VITAMINS W/ FOLIC ACID TABLET (FP) PO SCH (10:38)
[2018-07-02] MEDS: DOLUTEGRAVIR SODIUM 50 MG TABLET PO SCH (10:38)
[2018-07-02] MEDS: TENOFOVIR DISOPROXIL FUMARATE 300 MG TABLET PO SCH (10:39)
--- NOTE | 2018-07-02 13:55 | PN ---
[facility] Progress Note (SOAP) Subjective: c/o nausea x 2 days. Vomited x 7 since yesterday evening. States vomitus was brownish and then greenish. Last time nothing came out. C/o achy/soreness of stomach. States pain now is a '5' down from an '8'. States was unable to sleep during the night. Stopped medications because of nausea and fear of vomiting. C/o headache. Objective: A&O x 3. Abd soft, non-tender, BS+. Lungs CTA. Vital Signs 07/02/18 06:48 Temperature 98.8 F Pulse Rate 70 Respiratory 18 Rate Blood Pressure 127/91 Lab Results WBC 7.0 K/mm3 (4.0-10.0) 06/26/18 05:40 RBC 4.49 M/mm3 (4.00-5.60) 06/26/18 05:40 Hgb 12.3 GM/dL (11.7-16.9) 06/26/18 05:40 Hct 37.5 % (35.4-49) 06/26/18 05:40 MCV 83.6 fl (80-96) 06/26/18 05:40 MCHC 32.9 g/dl (32.0-35.9) 06/26/18 05:40 RDW 13.5 % (11.9-15.9) 06/26/18 05:40 Plt Count 103 K/MM3 (134-434) L 06/26/18 05:40 Sodium 145 mmol/L (136-145) 06/28/18 08:00 Potassium 3.8 mmol/L (3.5-5.1) 06/28/18 08:00 Chloride 108 mmol/L (98-107) H 06/28/18 08:00 Carbon Dioxide 27 mmol/L (21-32) 06/28/18 08:00 Anion Gap 10 MMOL/L (8-16) 06/28/18 08:00 BUN 14 mg/dL (7-18) 06/28/18 08:00 Creatinine 0.8 mg/dL (0.55-1.3) 06/28/18 08:00 Random Glucose 96 mg/dL (74-106) 06/28/18 08:00 Calcium 8.5 mg/dL (8.5-10.1) 06/28/18 08:00 Labs reviewed. Assessment: Nausea Heroin remission HIV(+) Nausea Plan: Continue detox
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
[2018-07-02] MEDS ORDERED: ONDANSETRON *ODT* 4 MG TABLET SL ONE (14:40)
[2018-07-02] MEDS: THIAMINE HCL 100 MG TABLET (FP) PO SCH (21:15)
[2018-07-02] MEDS: hydrOXYzine PAMOATE 50 MG CAPSULE (FP) PO PRN (21:15)
[2018-07-03] MEDS: ACETAMINOPHEN 325 MG TABLET (FP) PO PRN (04:26)
[2018-07-03] MEDS: DARUNAVIR 800 MG/COBICISTAT 150MG TABLET PO SCH (07:03)
[2018-07-03] MEDS: DOLUTEGRAVIR SODIUM 50 MG TABLET PO SCH (09:46)
[2018-07-03] MEDS: PRENATAL VITAMINS W/ FOLIC ACID TABLET (FP) PO SCH (09:46)
[2018-07-03] MEDS: TENOFOVIR DISOPROXIL FUMARATE 300 MG TABLET PO SCH (09:47)
[2018-07-03] MEDS: SUVOREXANT 10 MG TABLET PO PRN (21:15)
[2018-07-03] MEDS: THIAMINE HCL 100 MG TABLET (FP) PO SCH (21:16)
[2018-07-04] MEDS: DARUNAVIR 800 MG/COBICISTAT 150MG TABLET PO SCH (07:15)
[2018-07-04] MEDS: DOLUTEGRAVIR SODIUM 50 MG TABLET PO SCH (09:56)
[2018-07-04] MEDS: PRENATAL VITAMINS W/ FOLIC ACID TABLET (FP) PO SCH (09:56)
[2018-07-04] MEDS: TENOFOVIR DISOPROXIL FUMARATE 300 MG TABLET PO SCH (09:57)
[2018-07-04] MEDS: IBUPROFEN 400 MG TABLET (FP) PO PRN (09:57)
[2018-07-04] MEDS: hydrOXYzine PAMOATE 50 MG CAPSULE (FP) PO PRN (09:57)
[2018-07-04] MEDS: SUVOREXANT 10 MG TABLET PO PRN (21:11)
[2018-07-04] MEDS: THIAMINE HCL 100 MG TABLET (FP) PO SCH (21:11)
[2018-07-05] MEDS: DARUNAVIR 800 MG/COBICISTAT 150MG TABLET PO SCH (07:24)
[2018-07-05] MEDS: MAG HYDROX/AL HYDROX/SIMETH 30 ML UNIT-DOSE CUP PO PRN (12:00)
[2018-07-05] MEDS: PRENATAL VITAMINS W/ FOLIC ACID TABLET (FP) PO SCH (15:47)
[2018-07-05] MEDS: TENOFOVIR DISOPROXIL FUMARATE 300 MG TABLET PO SCH (15:48)
[2018-07-05] MEDS: DOLUTEGRAVIR SODIUM 50 MG TABLET PO SCH (15:48)
--- NOTE | 2018-07-05 15:53 | PN ---
[facility] Progress Note Note: c/o nausea/vomiting. plan:jhonatan lemus as directed.
[2018-07-05] MEDS: ONDANSETRON *ODT* 4 MG TABLET SL PRN (17:13)
[2018-07-05] MEDS: MELATONIN 5 MG TABLETS PO PRN (21:19)
[2018-07-05] MEDS: THIAMINE HCL 100 MG TABLET (FP) PO SCH (21:19)
[2018-07-05] MEDS: SUVOREXANT 10 MG TABLET PO PRN (21:19)
[2018-07-06] MEDS: TENOFOVIR DISOPROXIL FUMARATE 300 MG TABLET PO SCH (10:12)
[2018-07-06] MEDS: PRENATAL VITAMINS W/ FOLIC ACID TABLET (FP) PO SCH (10:12)
[2018-07-06] MEDS: DOLUTEGRAVIR SODIUM 50 MG TABLET PO SCH (10:12)
[2018-07-06] MEDS: ONDANSETRON *ODT* 4 MG TABLET SL PRN (10:12)
[2018-07-06] MEDS: DARUNAVIR 800 MG/COBICISTAT 150MG TABLET PO SCH (10:12)
[2018-07-06] MEDS: THIAMINE HCL 100 MG TABLET (FP) PO SCH (21:09)
[2018-07-06] MEDS: MELATONIN 5 MG TABLETS PO PRN (21:09)
[2018-07-07] MEDS: DARUNAVIR 800 MG/COBICISTAT 150MG TABLET PO SCH (09:00)
[2018-07-07] MEDS: PRENATAL VITAMINS W/ FOLIC ACID TABLET (FP) PO SCH (09:55)
[2018-07-07] MEDS: DOLUTEGRAVIR SODIUM 50 MG TABLET PO SCH (09:55)
[2018-07-07] MEDS: TENOFOVIR DISOPROXIL FUMARATE 300 MG TABLET PO SCH (09:56)
[2018-07-07] MEDS: SUVOREXANT 10 MG TABLET PO PRN (21:04)
[2018-07-07] MEDS: THIAMINE HCL 100 MG TABLET (FP) PO SCH (21:04)
[2018-07-07] MEDS: MELATONIN 5 MG TABLETS PO PRN (21:05)
[2018-07-08] MEDS: DARUNAVIR 800 MG/COBICISTAT 150MG TABLET PO SCH (09:00)
[2018-07-08] MEDS: DOLUTEGRAVIR SODIUM 50 MG TABLET PO SCH (09:59)
[2018-07-08] MEDS: PRENATAL VITAMINS W/ FOLIC ACID TABLET (FP) PO SCH (09:59)
[2018-07-08] MEDS: TENOFOVIR DISOPROXIL FUMARATE 300 MG TABLET PO SCH (10:00)
[2018-07-08] MEDS: THIAMINE HCL 100 MG TABLET (FP) PO SCH (21:11)
[2018-07-08] MEDS: SUVOREXANT 10 MG TABLET PO PRN (21:12)
[2018-07-09] MEDS: DARUNAVIR 800 MG/COBICISTAT 150MG TABLET PO SCH (09:00)
[2018-07-09] MEDS: PRENATAL VITAMINS W/ FOLIC ACID TABLET (FP) PO SCH (09:39)
[2018-07-09] MEDS: DOLUTEGRAVIR SODIUM 50 MG TABLET PO SCH (09:40)
[2018-07-09] MEDS: TENOFOVIR DISOPROXIL FUMARATE 300 MG TABLET PO SCH (09:40)
[2018-07-09] MEDS: MELATONIN 5 MG TABLETS PO PRN (21:10)
[2018-07-09] MEDS: THIAMINE HCL 100 MG TABLET (FP) PO SCH (21:10)
[2018-07-09] MEDS: SUVOREXANT 10 MG TABLET PO PRN (21:11)
[2018-07-10] MEDS: DARUNAVIR 800 MG/COBICISTAT 150MG TABLET PO SCH (09:44)
[2018-07-10] MEDS: PRENATAL VITAMINS W/ FOLIC ACID TABLET (FP) PO SCH (09:44)
[2018-07-10] MEDS: DOLUTEGRAVIR SODIUM 50 MG TABLET PO SCH (09:45)
[2018-07-10] MEDS: TENOFOVIR DISOPROXIL FUMARATE 300 MG TABLET PO SCH (09:45)
[2018-07-10] MEDS: MELATONIN 5 MG TABLETS PO PRN (21:14)
[2018-07-10] MEDS: SUVOREXANT 10 MG TABLET PO PRN (21:14)
[2018-07-10] MEDS: THIAMINE HCL 100 MG TABLET (FP) PO SCH (21:15)
[2018-07-11] MEDS: DARUNAVIR 800 MG/COBICISTAT 150MG TABLET PO SCH (08:58)
[2018-07-11] MEDS: PRENATAL VITAMINS W/ FOLIC ACID TABLET (FP) PO SCH (09:58)
[2018-07-11] MEDS: DOLUTEGRAVIR SODIUM 50 MG TABLET PO SCH (09:59)
[2018-07-11] MEDS: TENOFOVIR DISOPROXIL FUMARATE 300 MG TABLET PO SCH (09:59)
[2018-07-11] MEDS: THIAMINE HCL 100 MG TABLET (FP) PO SCH (21:13)
[2018-07-11] MEDS: MELATONIN 5 MG TABLETS PO PRN (21:13)
[2018-07-11] MEDS: SUVOREXANT 10 MG TABLET PO PRN (21:13)
[2018-07-12] MEDS: DARUNAVIR 800 MG/COBICISTAT 150MG TABLET PO SCH (09:00)
[2018-07-12] MEDS: TENOFOVIR DISOPROXIL FUMARATE 300 MG TABLET PO SCH (09:44)
[2018-07-12] MEDS: DOLUTEGRAVIR SODIUM 50 MG TABLET PO SCH (09:44)
[2018-07-12] MEDS: PRENATAL VITAMINS W/ FOLIC ACID TABLET (FP) PO SCH (09:45)
[2018-07-12] MEDS: ACETAMINOPHEN 325 MG TABLET (FP) PO PRN (09:46)
[2018-07-12] MEDS: THIAMINE HCL 100 MG TABLET (FP) PO SCH (21:25)
[2018-07-12] MEDS: MELATONIN 5 MG TABLETS PO PRN (21:25)
[2018-07-13] MEDS: DOLUTEGRAVIR SODIUM 50 MG TABLET PO SCH (09:55)
[2018-07-13] MEDS: TENOFOVIR DISOPROXIL FUMARATE 300 MG TABLET PO SCH (09:55)
[2018-07-13] MEDS: DARUNAVIR 800 MG/COBICISTAT 150MG TABLET PO SCH (09:55)
[2018-07-13] MEDS: PRENATAL VITAMINS W/ FOLIC ACID TABLET (FP) PO SCH (09:55)
[2018-07-13] MEDS: THIAMINE HCL 100 MG TABLET (FP) PO SCH (21:19)
[2018-07-13] MEDS: MELATONIN 5 MG TABLETS PO PRN (21:19)
[2018-07-14] MEDS: DARUNAVIR 800 MG/COBICISTAT 150MG TABLET PO SCH (10:21)
[2018-07-14] MEDS: DOLUTEGRAVIR SODIUM 50 MG TABLET PO SCH (10:21)
[2018-07-14] MEDS: PRENATAL VITAMINS W/ FOLIC ACID TABLET (FP) PO SCH (10:21)
[2018-07-14] MEDS: TENOFOVIR DISOPROXIL FUMARATE 300 MG TABLET PO SCH (10:21)
[2018-07-14] MEDS: THIAMINE HCL 100 MG TABLET (FP) PO SCH (21:30)
[2018-07-14] MEDS: MELATONIN 5 MG TABLETS PO PRN (21:30)
[2018-07-15] MEDS: DOLUTEGRAVIR SODIUM 50 MG TABLET PO SCH (10:23)
[2018-07-15] MEDS: PRENATAL VITAMINS W/ FOLIC ACID TABLET (FP) PO SCH (10:23)
[2018-07-15] MEDS: DARUNAVIR 800 MG/COBICISTAT 150MG TABLET PO SCH (10:23)
[2018-07-15] MEDS: TENOFOVIR DISOPROXIL FUMARATE 300 MG TABLET PO SCH (10:23)
--- NOTE | 2018-07-15 15:34 | PN ---
S Progress Note Note: NURSE AUGUSTUS ROY CALLED TO REPORT THIS PATIENT FELL WHILE PLAYING [employer]. PT REPORTS HE FELL ON HIS LEFT KNEE AND LEFT ELBOW. EXAM: SLIGHT REDNESS TO LEFT ELBOW AREA. NO SWELLING OR BRUISING/BLEEDING NOTED. LEFT KNEE WITH SLIGHT SUPERFICIAL SKIN ABRASION. NO SWELLING/BLEEDING NOTED. PLAN:COLD COMPRESS TO AREA BACITRACIN OINTMENT DIRECTED MOTRIN PRN FALL PROTOCOL #2
[2018-07-15] MEDS: MELATONIN 5 MG TABLETS PO PRN (21:30)
[2018-07-15] MEDS: BACITRACIN 15 GM TUBE TOPICAL OINTMENT TP SCH (21:30)
[2018-07-15] MEDS: THIAMINE HCL 100 MG TABLET (FP) PO SCH (21:31)
[2018-07-16] MEDS: BACITRACIN 15 GM TUBE TOPICAL OINTMENT TP SCH ×2 (10:26→21:50)
[2018-07-16] MEDS: PRENATAL VITAMINS W/ FOLIC ACID TABLET (FP) PO SCH (10:26)
[2018-07-16] MEDS: DOLUTEGRAVIR SODIUM 50 MG TABLET PO SCH (10:27)
[2018-07-16] MEDS: TENOFOVIR DISOPROXIL FUMARATE 300 MG TABLET PO SCH (10:27)
[2018-07-16] MEDS: DARUNAVIR 800 MG/COBICISTAT 150MG TABLET PO SCH (10:27)
--- NOTE | 2018-07-16 15:14 | PN ---
[facility] Progress Note Note: C/O ABDOMINAL DISCOMFORT AND REFLUX. ZANTAC 150 MG MG PO BID.
[2018-07-16] MEDS: RANITIDINE HCL 150 MG TABLET (FP) PO SCH (21:50)
[2018-07-16] MEDS: THIAMINE HCL 100 MG TABLET (FP) PO SCH (21:50)
[2018-07-16] MEDS: MELATONIN 5 MG TABLETS PO PRN (21:51)
[2018-07-17] MEDS: RANITIDINE HCL 150 MG TABLET (FP) PO SCH ×2 (10:09→21:42)
[2018-07-17] MEDS: TENOFOVIR DISOPROXIL FUMARATE 300 MG TABLET PO SCH (10:09)
[2018-07-17] MEDS: BACITRACIN 15 GM TUBE TOPICAL OINTMENT TP SCH ×2 (10:09→21:43)
[2018-07-17] MEDS: PRENATAL VITAMINS W/ FOLIC ACID TABLET (FP) PO SCH (10:09)
[2018-07-17] MEDS: DOLUTEGRAVIR SODIUM 50 MG TABLET PO SCH (10:09)
[2018-07-17] MEDS: DARUNAVIR 800 MG/COBICISTAT 150MG TABLET PO SCH (10:10)
[2018-07-17] MEDS: MELATONIN 5 MG TABLETS PO PRN (21:42)
[2018-07-17] MEDS: THIAMINE HCL 100 MG TABLET (FP) PO SCH (21:43)
[2018-07-18] MEDS ORDERED: PT OWN MED DRAWER 7, Y5N ONE (02:21)
[2018-07-18] MEDS: DARUNAVIR 800 MG/COBICISTAT 150MG TABLET PO SCH (09:00)
[2018-07-18] MEDS: RANITIDINE HCL 150 MG TABLET (FP) PO SCH ×2 (10:01→22:00)
[2018-07-18] MEDS: DOLUTEGRAVIR SODIUM 50 MG TABLET PO SCH (10:01)
[2018-07-18] MEDS: PRENATAL VITAMINS W/ FOLIC ACID TABLET (FP) PO SCH (10:01)
[2018-07-18] MEDS: TENOFOVIR DISOPROXIL FUMARATE 300 MG TABLET PO SCH (10:02)
[2018-07-18] MEDS: BACITRACIN 15 GM TUBE TOPICAL OINTMENT TP SCH ×2 (10:03→21:59)
[2018-07-18] MEDS: MELATONIN 5 MG TABLETS PO PRN (21:59)
[2018-07-18] MEDS: THIAMINE HCL 100 MG TABLET (FP) PO SCH (21:59)
[2018-07-19] MEDS: DOLUTEGRAVIR SODIUM 50 MG TABLET PO SCH (10:08)
[2018-07-19] MEDS: TENOFOVIR DISOPROXIL FUMARATE 300 MG TABLET PO SCH (10:08)
[2018-07-19] MEDS: RANITIDINE HCL 150 MG TABLET (FP) PO SCH ×2 (10:08→21:35)
[2018-07-19] MEDS: PRENATAL VITAMINS W/ FOLIC ACID TABLET (FP) PO SCH (10:08)
[2018-07-19] MEDS: BACITRACIN 15 GM TUBE TOPICAL OINTMENT TP SCH ×2 (10:09→21:36)
[2018-07-19] MEDS: DARUNAVIR 800 MG/COBICISTAT 150MG TABLET PO SCH (10:09)
--- NOTE | 2018-07-19 10:18 | PN ---
[facility] Progress Note Note: States stomach is better. Wants to switch back to regular ensure.
[2018-07-19] MEDS: MELATONIN 5 MG TABLETS PO PRN (21:35)
[2018-07-19] MEDS: THIAMINE HCL 100 MG TABLET (FP) PO SCH (21:36)
[2018-07-20] MEDS: DOLUTEGRAVIR SODIUM 50 MG TABLET PO SCH (09:54)
[2018-07-20] MEDS: TENOFOVIR DISOPROXIL FUMARATE 300 MG TABLET PO SCH (09:54)
[2018-07-20] MEDS: RANITIDINE HCL 150 MG TABLET (FP) PO SCH ×2 (09:55→21:58)
[2018-07-20] MEDS: DARUNAVIR 800 MG/COBICISTAT 150MG TABLET PO SCH (09:55)
[2018-07-20] MEDS: BACITRACIN 15 GM TUBE TOPICAL OINTMENT TP SCH ×2 (09:55→21:58)
[2018-07-20] MEDS: PRENATAL VITAMINS W/ FOLIC ACID TABLET (FP) PO SCH (09:55)
[2018-07-20] MEDS: THIAMINE HCL 100 MG TABLET (FP) PO SCH (21:58)
[2018-07-21] MEDS: RANITIDINE HCL 150 MG TABLET (FP) PO SCH ×2 (10:27→21:47)
[2018-07-21] MEDS: TENOFOVIR DISOPROXIL FUMARATE 300 MG TABLET PO SCH (10:27)
[2018-07-21] MEDS: BACITRACIN 15 GM TUBE TOPICAL OINTMENT TP SCH ×2 (10:27→21:48)
[2018-07-21] MEDS: DOLUTEGRAVIR SODIUM 50 MG TABLET PO SCH (10:27)
[2018-07-21] MEDS: PRENATAL VITAMINS W/ FOLIC ACID TABLET (FP) PO SCH (10:28)
[2018-07-21] MEDS: DARUNAVIR 800 MG/COBICISTAT 150MG TABLET PO SCH (13:20)
[2018-07-21] MEDS: THIAMINE HCL 100 MG TABLET (FP) PO SCH (21:48)
[2018-07-22] MEDS: RANITIDINE HCL 150 MG TABLET (FP) PO SCH ×2 (10:26→21:46)
[2018-07-22] MEDS: PRENATAL VITAMINS W/ FOLIC ACID TABLET (FP) PO SCH (10:26)
[2018-07-22] MEDS: DARUNAVIR 800 MG/COBICISTAT 150MG TABLET PO SCH (10:26)
[2018-07-22] MEDS: TENOFOVIR DISOPROXIL FUMARATE 300 MG TABLET PO SCH (10:27)
[2018-07-22] MEDS: DOLUTEGRAVIR SODIUM 50 MG TABLET PO SCH (10:27)
[2018-07-22] MEDS: BACITRACIN 15 GM TUBE TOPICAL OINTMENT TP SCH ×2 (10:28→21:47)
[2018-07-22] MEDS: ALBUTEROL SO4 8 GM HFA INHALER IH PRN (17:59)
[2018-07-22] MEDS: THIAMINE HCL 100 MG TABLET (FP) PO SCH (21:47)
[2018-07-23] MEDS: ALBUTEROL SO4 8 GM HFA INHALER IH PRN ×2 (06:33→10:17)
[2018-07-23] MEDS: TENOFOVIR DISOPROXIL FUMARATE 300 MG TABLET PO SCH (10:15)
[2018-07-23] MEDS: DARUNAVIR 800 MG/COBICISTAT 150MG TABLET PO SCH (10:15)
[2018-07-23] MEDS: PRENATAL VITAMINS W/ FOLIC ACID TABLET (FP) PO SCH (10:16)
[2018-07-23] MEDS: DOLUTEGRAVIR SODIUM 50 MG TABLET PO SCH (10:16)
[2018-07-23] MEDS: RANITIDINE HCL 150 MG TABLET (FP) PO SCH ×2 (10:16→21:37)
[2018-07-23] MEDS: BACITRACIN 15 GM TUBE TOPICAL OINTMENT TP SCH ×2 (12:48→21:38)
[2018-07-23] MEDS: THIAMINE HCL 100 MG TABLET (FP) PO SCH (21:38)
[2018-07-24] MEDS: ALBUTEROL SO4 8 GM HFA INHALER IH PRN (10:26)
[2018-07-24] MEDS: PRENATAL VITAMINS W/ FOLIC ACID TABLET (FP) PO SCH (10:26)
[2018-07-24] MEDS: RANITIDINE HCL 150 MG TABLET (FP) PO SCH ×2 (10:26→21:32)
[2018-07-24] MEDS: BACITRACIN 15 GM TUBE TOPICAL OINTMENT TP SCH ×2 (10:26→21:32)
[2018-07-24] MEDS: TENOFOVIR DISOPROXIL FUMARATE 300 MG TABLET PO SCH (10:27)
[2018-07-24] MEDS: DOLUTEGRAVIR SODIUM 50 MG TABLET PO SCH (10:27)
[2018-07-24] MEDS: DARUNAVIR 800 MG/COBICISTAT 150MG TABLET PO SCH (10:27)
[2018-07-24] MEDS: THIAMINE HCL 100 MG TABLET (FP) PO SCH (21:32)
[2018-07-25] MEDS: DARUNAVIR 800 MG/COBICISTAT 150MG TABLET PO SCH (09:00)
[2018-07-25] MEDS: PRENATAL VITAMINS W/ FOLIC ACID TABLET (FP) PO SCH (10:35)
[2018-07-25] MEDS: TENOFOVIR DISOPROXIL FUMARATE 300 MG TABLET PO SCH (10:35)
[2018-07-25] MEDS: RANITIDINE HCL 150 MG TABLET (FP) PO SCH ×2 (10:35→21:19)
[2018-07-25] MEDS: BACITRACIN 15 GM TUBE TOPICAL OINTMENT TP SCH ×2 (10:36→21:19)
[2018-07-25] MEDS: DOLUTEGRAVIR SODIUM 50 MG TABLET PO SCH (10:36)
[2018-07-25] MEDS: ALBUTEROL SO4 8 GM HFA INHALER IH PRN (10:37)
[2018-07-25] MEDS: THIAMINE HCL 100 MG TABLET (FP) PO SCH (21:19)
[2018-07-26] MEDS: DARUNAVIR 800 MG/COBICISTAT 150MG TABLET PO SCH (10:47)
[2018-07-26] MEDS: RANITIDINE HCL 150 MG TABLET (FP) PO SCH ×2 (10:47→21:34)
[2018-07-26] MEDS: PRENATAL VITAMINS W/ FOLIC ACID TABLET (FP) PO SCH (10:47)
[2018-07-26] MEDS: ALBUTEROL SO4 8 GM HFA INHALER IH PRN (10:47)
[2018-07-26] MEDS: DOLUTEGRAVIR SODIUM 50 MG TABLET PO SCH (10:47)
[2018-07-26] MEDS: TENOFOVIR DISOPROXIL FUMARATE 300 MG TABLET PO SCH (10:47)
[2018-07-26] MEDS: BACITRACIN 15 GM TUBE TOPICAL OINTMENT TP SCH ×2 (11:04→21:34)
[2018-07-26] MEDS: THIAMINE HCL 100 MG TABLET (FP) PO SCH (21:34)
[2018-07-27] MEDS: DOLUTEGRAVIR SODIUM 50 MG TABLET PO SCH (10:16)
[2018-07-27] MEDS: TENOFOVIR DISOPROXIL FUMARATE 300 MG TABLET PO SCH (10:16)
[2018-07-27] MEDS: DARUNAVIR 800 MG/COBICISTAT 150MG TABLET PO SCH (10:16)
[2018-07-27] MEDS: PRENATAL VITAMINS W/ FOLIC ACID TABLET (FP) PO SCH (10:16)
[2018-07-27] MEDS: RANITIDINE HCL 150 MG TABLET (FP) PO SCH ×2 (10:16→21:45)
[2018-07-27] MEDS: BACITRACIN 15 GM TUBE TOPICAL OINTMENT TP SCH ×2 (10:17→21:45)
[2018-07-27] MEDS: THIAMINE HCL 100 MG TABLET (FP) PO SCH (21:45)
[2018-07-28] MEDS: RANITIDINE HCL 150 MG TABLET (FP) PO SCH ×2 (10:22→21:41)
[2018-07-28] MEDS: DARUNAVIR 800 MG/COBICISTAT 150MG TABLET PO SCH (10:22)
[2018-07-28] MEDS: PRENATAL VITAMINS W/ FOLIC ACID TABLET (FP) PO SCH (10:22)
[2018-07-28] MEDS: DOLUTEGRAVIR SODIUM 50 MG TABLET PO SCH (10:23)
[2018-07-28] MEDS: TENOFOVIR DISOPROXIL FUMARATE 300 MG TABLET PO SCH (10:23)
[2018-07-28] MEDS: ALBUTEROL SO4 8 GM HFA INHALER IH PRN (10:24)
[2018-07-28] MEDS: BACITRACIN 15 GM TUBE TOPICAL OINTMENT TP SCH ×2 (11:16→21:42)
--- NOTE | 2018-07-28 14:50 | PN ---
Psychiatric Progress Note Vital Signs: Vital Signs Period Temp Pulse Resp BP Sys/[place] Pulse Ox Last 24 Hr 98.2 F 80 16-18 127/87 Date of Session: 07/28/18 Chief Complaint:: Discharge Note HPI: Patient addressing Opioid Dependence comorbid with Substance-Induced Mood Disorder and Substance-Induced Sleep Disorder ROS: AIDS, Asthma, Hep C, H/O Anemia were medically managed Current Medications: Active Medications Generic Name Dose Route Start Last Admin Trade Name Freq PRN Reason Stop Dose Admin Acetaminophen 650 mg 06/25/18 13:46 07/12/18 09:46 Tylenol - PO 650 mg Q4H PRN Administration FEVER Al Hydroxide/Mg Hydroxide 30 ml 06/25/18 13:46 07/05/18 12:00 Mylanta Oral Suspension - PO 30 ml Q6H PRN Administration DYSPEPSIA Albuterol Sulfate 2 puff 06/25/18 13:50 07/28/18 10:24 Ventolin Hfa Inhaler - IH 2 puff Q4H PRN Administration ASTHMA Bacitracin 1 applic 07/15/18 22:00 07/28/18 11:16 Bacitracin - TP Not Given BID SHEMAR Eucalyptus/Menthol/Phenol/Sorbitol 1 each 06/25/18 13:46 07/28/18 10:26 Cepastat Lozenge - MM 1 each Q4H PRN Administration SORE THROAT Guaifenesin 10 ml 06/25/18 13:46 07/28/18 10:26 Robitussin Dm - PO 10 ml Q6H PRN Administration COUGH Hydroxyzine Pamoate 50 mg 06/25/18 13:46 07/04/18 09:57 Vistaril - PO 50 mg Q4H PRN Administration AGITATION Ibuprofen 400 mg 06/25/18 13:46 07/04/18 09:57 Motrin - PO 400 mg Q6H PRN Administration PAIN LEVEL 4-6 Loperamide HCl 4 mg 06/25/18 13:46 06/27/18 10:32 Imodium - PO 4 mg Q6H PRN Administration DIARRHEA Magnesium Citrate 300 ml 06/25/18 13:46 Citroma - PO Q48H PRN CONSTIPATION Magnesium Hydroxide 30 ml 06/25/18 13:46 Milk Of Magnesia - PO DAILY PRN CONSTIPATION Melatonin 5 mg 07/01/18 22:00 07/19/18 21:35 Melatonin PO 5 mg HS PRN Administration INSOMNIA Ondansetron HCl 8 mg 07/05/18 15:52 07/06/18 10:12 Zofran Odt - SL 8 mg Q8H PRN Administration NAUSEA AND/OR VOMITING Multivit/Folic Acid/Iron 1 tab 06/26/18 10:00 07/28/18 10:22 Vitamins (Sjr) - PO 1 tab DAILY SHEMAR Administration Pseudoephedrine/Triprolidine 1 combo 06/25/18 13:46 Actifed - PO TID PRN NASAL CONGESTION Ranitidine HCl 150 mg 07/16/18 22:00 07/28/18 10:22 Zantac - PO 150 mg BID SHEMAR Administration Tenofovir Disoproxil Fumarate 300 mg 06/26/18 10:00 07/28/18 10:23 Viread - PO 300 mg DAILY SHEMAR Administration Thiamine HCl 100 mg 06/25/18 22:00 07/27/18 21:45 Vitamin B1 - PO Not Given HS SHEMAR Current Side Effect: No Lab tests ordered: Yes Lab tests reviewed: Yes Provider note:: Patient will complete this program on 07/29/18. He has met his treatment goals and will continue to address his issues in outpatient treatment at [facility]. Told mortgage underwriter that from his participation in this program, he has learned to try things differently in order to get different result. He is stable for discharge on 07/29/18 Total face to face time:: 35 Mental Status Exam - Mental Status Exam Alert and Oriented to: Time, Place, Person Cognitive Function: Fair Patient Appearance: Well Groomed Mood: Hopeful, Euthymic Affect: Appropriate Patient Behavior: Cooperative Speech Pattern: Clear Voice Loudness: Normal Thought Process: Intact, Goal Oriented Thought Disorder: Not Present Hallucinations: Denies Suicidal Ideation: Denies Homicidal Ideation: Denies Insight/Judgement: Fair Sleep: Fair Appetite: Good Muscle strength/Tone: Normal Gait/Station: Normal Psychiatric Treatment Plan - Problem List (1) Opioid dependence Current Visit: Yes (2) Substance induced mood disorder Current Visit: Yes (3) Substance-induced sleep disorder Current Visit: Yes (4) AIDS Current Visit: Yes (5) Asthma Current Visit: Yes Qualifiers: Asthma severity: unspecified severity Asthma persistence: unspecified Asthma complication type: uncomplicated Qualified Code(s): J45.909 - Unspecified asthma, uncomplicated (6) Hepatitis C Current Visit: Yes Qualifiers: Viral hepatitis chronicity: chronic (7) History of anemia Current Visit: Yes Initial treatment plan: Patient will be discharged tomorrow and referred to [facility] for outpatient treatment
[2018-07-28] MEDS: MELATONIN 5 MG TABLETS PO PRN (21:41)
[2018-07-28] MEDS: THIAMINE HCL 100 MG TABLET (FP) PO SCH (21:41)
[2018-07-29 06:38] VITALS: BP 114/78; PULSE 98; TEMP 98.5
[2018-07-29] MEDS ORDERED: PT OWN MED DRAWER 7, Y5N ONE (08:52)
--- NOTE | 2018-07-29 09:16 | PN ---
[facility] Progress Note Note: REHAB COMPLETED. ALERT O X 3. NAD. PT REPORTS PRIMARY CARE AT [place], [place] WITH DR CAROL MONROE. PT STATES HE IS SEEING THE DOCTOR ON 08/03/18. Vital Signs - 24 hr 07/29/18 07/29/18 07/29/18 00:30 03:30 06:37 Temperature 98.5 F Pulse Rate 98 H Respiratory 18 18 16 Rate Blood Pressure 114/78 Laboratory Tests 06/26/18 06/26/18 06/26/18 05:40 05:40 05:40 WBC 7.0 RBC 4.49 Hgb 12.3 Hct 37.5 MCV 83.6 MCH 27.5 MCHC 32.9 RDW 13.5 Plt Count 103 L MPV 12.0 H Sodium 136 Potassium 3.0 L Chloride 97 L Carbon Dioxide 23 Anion Gap 16 BUN 13 Creatinine 0.9 Creat Clearance w eGFR > 60 Random Glucose 89 Calcium 8.6 Total Bilirubin 0.7 AST 296 H ALT 161 H Alkaline Phosphatase 99 Total Protein 9.0 H Albumin 3.3 L Urine Color Urine Appearance Urine pH Ur Specific [place] Urine Protein Urine Glucose (UA) Urine Ketones Urine Blood Urine Nitrite Urine Bilirubin Urine Urobilinogen Ur Leukocyte Esterase Urine WBC (Auto) Urine RBC (Auto) Ur Epithelial Cells RPR Titer Nonreactive 06/26/18 06/28/18 06/28/18 09:00 08:00 08:00 WBC RBC Hgb Hct MCV MCH MCHC RDW Plt Count MPV Sodium 145 Potassium 3.8 Chloride 108 H Carbon Dioxide 27 Anion Gap 10 BUN 14 Creatinine 0.8 Creat Clearance w eGFR > 60 Random Glucose 96 Calcium 8.5 Total Bilirubin 0.3 AST 231 H ALT 142 H Alkaline Phosphatase 114 Total Protein 7.6 Albumin 2.5 L Urine Color Yellow Yellow Urine Appearance Clear Clear Urine pH 6.0 7.0 Ur Specific [place] 1.010 1.014 Urine Protein Negative Negative Urine Glucose (UA) Negative Negative Urine Ketones Negative Negative Urine Blood 1+ H Negative Urine Nitrite Negative Negative Urine Bilirubin Negative Negative Urine Urobilinogen Negative Negative Ur Leukocyte Esterase Negative Negative Urine WBC (Auto) 1 Urine RBC (Auto) 2 Ur Epithelial Cells Rare RPR Titer MEDICALLY STABLE PLAN:FOLLOW UP WITH DR Kurt MONROE ON 08/03/18 FOR MEDICAL MANAGEMENT FOLLOW UP WITH AFTERCARE PLANNED WITH YOUR COUNSELOR.
[2018-07-29] MEDS: BACITRACIN 15 GM TUBE TOPICAL OINTMENT TP SCH (10:18)
[2018-07-29] MEDS: PRENATAL VITAMINS W/ FOLIC ACID TABLET (FP) PO SCH (10:18)
[2018-07-29] MEDS: RANITIDINE HCL 150 MG TABLET (FP) PO SCH (10:18)
[2018-07-29] MEDS: DOLUTEGRAVIR SODIUM 50 MG TABLET PO SCH (10:18)
[2018-07-29] MEDS: TENOFOVIR DISOPROXIL FUMARATE 300 MG TABLET PO SCH (10:18)
[2018-07-29] MEDS: DARUNAVIR 800 MG/COBICISTAT 150MG TABLET PO SCH (10:18)
== END 2018-07-29 11:02 | disposition home or self-care (01) | DRG 895 ==
LOC: YASAS 09:52 → Y3N 14:49 → Y5N 07-01 12:32
PROVIDERS: ATTEND Psychiatry & Neurology Psychiatry
PROC: HZ2ZZZZ Detoxification Services for Substance Abuse Treatment (ICD-10-PCS; principal; 2018-06-25)
PROC: HZ42ZZZ Group Counseling for Substance Abuse Treatment, Cognitive-Behavioral (ICD-10-PCS; 2018-06-30)
DX: F11.23 Opioid dependence with withdrawal (principal); F19.282 Other psychoactive substance dependence with psychoactive substance-induced sleep disorder; B20 Human immunodeficiency virus [HIV] disease; F12.20 Cannabis dependence, uncomplicated; F19.24 Other psychoactive substance dependence with psychoactive substance-induced mood disorder; F32.9 Major depressive disorder, single episode, unspecified; J45.909 Unspecified asthma, uncomplicated; B18.2 Chronic viral hepatitis C; E87.6 Hypokalemia; K21.9 Gastro-esophageal reflux disease without esophagitis; R94.5 Abnormal results of liver function studies; R31.29 Other microscopic hematuria; Z87.438 Personal history of other diseases of male genital organs; Z87.891 Personal history of nicotine dependence; S80.212A Abrasion, left knee, initial encounter; W18.30XA Fall on same level, unspecified, initial encounter; Y93.89 Activity, other specified; Y92.238 Other place in hospital as the place of occurrence of the external cause
CPT/HCPCS: 36415; 80053; 81003; 81015; 85027; 86593; 93005; 93010; Q0162